=== PATIENT | female | born 1980 | race Caucasian/White ===

== ENCOUNTER → 2023-03-02 12:37 | Outpatient (CLI) | payer OTHER, SELFPAY ==
--- NOTE | 2023-03-02 | DI.MG.S_ITS ---
BILATERAL DIGITAL SCREENING MAMMOGRAM 3D/2D WITH CAD: 03/02/2023 CLINICAL: Routine screening. Comparison is made to exams dated: 10/13/2021 mammogram and 08/13/2020 mammogram - outside location. There are scattered areas of fibroglandular density in both breasts (category b / 25%-50% glandular tissue). Current study was also evaluated with a Computer Aided Detection (CAD) system. No significant masses, calcifications, or other findings are seen in either breast. There has been no significant interval change. IMPRESSION: NEGATIVE There is no mammographic evidence of malignancy. A 1 year screening mammogram is recommended. Based on the Tyrer Cuzick model (a risk assessment model) the patient's lifetime risk is 6.8% and her 10 year risk is 1.0%. According to the ACR, ACS, and NCCN guidelines, an annual breast MRI exam along with mammogram is recommended if the patient's lifetime risk is 20% or greater. This exam was interpreted at Station ID: [id number]. NOTE: For mammograms, a report in lay terms will be sent to the patient. Approximately 15% of breast malignancies will not be visualized mammographically. In the management of a palpable breast mass, a negative mammogram must not discourage biopsy of a clinically suspicious lesion. Electronically Signed By: David wynn/han:03/02/2023 14:41:52 letter sent: Normal Exam ACR BI-RADS Category 1: Negative [id number]
== END ==
PROVIDERS: Family Provider Family Medicine; PCP Family Medicine; Referring Provider Family Medicine; Visit Provider Family Medicine
DX: Z12.31 Encounter for screening mammogram for malignant neoplasm of breast (principal)
CPT/HCPCS: 77063; 77067

== ENCOUNTER → 2023-04-14 08:57 | Outpatient (CLI) | payer OTHER, SELFPAY ==
--- NOTE | 2023-04-14 08:58 | DI.RAD.S_ITS ---
PROCEDURE: XR FOOT LT MIN 3V INDICATIONS: Left lateral foot pain x 8 month TECHNIQUE: 3 views of the foot were acquired. COMPARISON: None. FINDINGS: Bones: No fractures or dislocations. No suspicious bony lesions. Soft tissues: No tibiotalar joint effusion. Achilles tendon appears normal. IMPRESSION: No acute bony abnormality. Dictated by: Bola Moe M.D. on 04/14/2023 at 11:28 Approved by: Bola Moe M.D. on 04/14/2023 at 11:29
== END ==
PROVIDERS: Family Provider Family Medicine; PCP Family Medicine; Referring Provider Family Medicine; Visit Provider Family Medicine
DX: M72.2 Plantar fascial fibromatosis (principal); M79.672 Pain in left foot
CPT/HCPCS: 73630

== ENCOUNTER 2023-08-18 09:00 | Outpatient (RCR) | payer OTHER, MEDICAID, SELFPAY ==
--- NOTE | 2023-07-16 15:50 | PT.OIE ---
Current Diagnoses Plantar fascial fibromatosis (07/16/23) Pain in left foot (07/16/23) Past Medical History (Last Updated 04/03/23 @ 21:06 by Isa Green) Anorexia nervosa Anxiety Bulimia Depression Heavy menstrual period (~2019) HSV-1 infection (~2000) Ovarian cyst (~2009) Painful menstrual periods (~2019) Plantar warts PTSD (post-traumatic stress disorder) (~2015) Substance abuse Past Surgical History (Last Updated 04/03/23 @ 21:06 by Isa Green) History of Visit Care Team Role Provider Type Regina Aguilar DO Attending Provider Physician Family Provider Primary Care Provider Referring Provider Specialty: Family Practice Address: [address] [place] [address], [address], [facility] Email: [email or web address] Physical Therapy Initial Evaluation PT-OP-A Visit Information Start: 07/16/23 07:24 Freq: Status: Active Protocol: Document 07/16/23 09:46 NM (Rec: 07/16/23 10:33 NM [id number]) Out-Patient Physical Therapy Visit Information Visit Information Visit Type Initial Evaluation Visit Note 12 visits MAX Visit Start Time 09:45 Visit Stop Time 10:30 Visit Number 1 Evaluation Information Evaluation Date 07/16/23 PT-OP-B Current Condition Start: 07/16/23 07:24 Freq: Status: Active Protocol: Document 07/16/23 09:46 NM (Rec: 07/16/23 10:33 NM [id number]) Current Condition History of Current Condition Onset Date 8 months Current Complaints pain, mobility, strength, balance History of Current Condition Pt reports that she has had pain in her foot for 8 months, L>R, that has worsened overall. Pt reports waking up with the pain one day. MD believes plantar fasciitis, but doesn't match. Pt has been wearing boot at night but reports that made symptoms worse. She recently got new shoes and orthotics specific for plantar fasciitis, reports good difference but continues to hurt. Pt used to wear shoes that cause compression. Pain occurs with exercise, plantarflexion. She had a recent gluten exacerbation, which led to systemic inflammation. Reports periodic numbness/tingling along L lateral foot. Pt has 4 kids, always on feet. Previous low back injury after falling down stairs 7 years ago, increased lordosis prn sharp pains and throbbing R>L relieved with flexion Prior Treatments and Tests Radiographs 03/2023: no fracture Current Functional Impairments (Reported) Functional Limitations- Mobility/Gait 20 minutes ambulation, standing Functional Limitations- Recreation/ unable to exercise Hobbies PT-OP-C Subjective Start: 07/16/23 07:24 Freq: Status: Active Protocol: Document 07/16/23 09:46 NM (Rec: 07/16/23 10:33 NM [id number]) OP-PT Subjective Patient Comments Patient Comments see hx above for pt report Patient Questionnaires Foot & Ankle Ability Measure- ADL and Sports FAAM-ADL Score 55/84 FAAM-Sport Score 14/32 Lower Extremity Functional Scale LEFS Score 56/80 OP-PT Pain Assessment Location L foot Pain Location Details arch, lateral ankle/foot calf Intensity 1 Scale Used Numeric (0 - 10) Description Dull,Stabbing Description- Other worst: 8/10 Radiating Location lateral leg to knee (throbbing ) Variations/Patterns occasional radiation without provocation Pain Aggravating Factors Changing Position,ADL's, Activity,Exercise,Standing, Walking Other Pain Aggravating Factors walk barefoot (5th toe), morning, inversion, initial steps, sleeping Other Pain Alleviating Factors shoes Home Pain Medication Use Pain Medications Used Yes: tylenol prn PT-OP-D Balance Start: 07/16/23 07:24 Freq: Status: Active Protocol: Document 07/16/23 09:46 NM (Rec: 07/16/23 17:49 NM [id number]) Balance Tests Single Limb Standing Single Limb- Right 30 seconds Single Limb- Left 15 seconds, pain near 5th metatarsal Tandem Tandem Standing 30 seconds, no pain PT-OP-E Functional Tests Start: 07/16/23 07:24 Freq: Status: Active Protocol: Document 07/16/23 09:46 NM (Rec: 07/16/23 17:49 NM [id number]) Functional Tests Squat Test Score 5 Comments L rotation, pronation, B valgus, reproduces foot pain PT-OP-F Manual Assessment Start: 07/16/23 07:24 Freq: Status: Active Protocol: Document 07/16/23 09:46 NM (Rec: 07/16/23 17:49 NM [id number]) Manual Assessments Soft Tissue Assessment Soft Tissue Mobility Assessment Increased hip flexor tightness , B paraspinals Joint Mobility Assessment Joint Mobility Assessment Decreased L great toe extension. Limitations in low back ROM. No increased instability of L ankle PT-OP-G Mobility & Gait Start: 07/16/23 07:24 Freq: Status: Active Protocol: Document 07/16/23 09:46 NM (Rec: 07/16/23 17:49 NM [id number]) OP Gait Assessment Gait Gait Assistance Required: Independent Distance (Feet) 150 Assistive Devices Assistive Device None Gait Deviations General Gait Pattern Antalgic Factors Limiting Gait Function Factors Limiting Gait Function Decreased Activity Tolerance, Pain Comments Gait Comments Demos decreased weight bearing along L lateral foot, tends to pronate PT-OP-H Neuro Start: 07/16/23 07:24 Freq: Status: Active Protocol: Document 07/16/23 09:46 NM (Rec: 07/16/23 17:49 NM [id number]) Sensation Evaluation Comments Summary Comments BLE equally intact to light touch sensation PT-OP-J Posture/Palpation/Skin Start: 07/16/23 07:24 Freq: Status: Active Protocol: Document 07/16/23 09:46 NM (Rec: 07/16/23 17:49 NM [id number]) Posture Evaluation Position Standing Head/C-Spine Posture Forward Head L-Spine Posture Increased Lordosis Pelvis Posture Anteriorly Tilted Knee Posture (L) Genu Valgus,(R) Genu Valgus Patellar Posture (L) Superior,(R) Superior Ankle/Foot Posture (L) Pronated,(R) Pronated,(L) Calcaneal Eversion,(R) Calcaneal Eversion Foot Arch (L) Low Arch,(R) Low Arch Palpation Assessment Location L foot Palpation Details Tenderness to 5th metatarsal. No tenderness of calcaneus, arch, Achilles, malleoli, other metatarsals Skin Assessment Other Assessments Skin Assessment Comments No swelling PT-OP-K Range of Motion Start: 07/16/23 07:24 Freq: Status: Active Protocol: Document 07/16/23 09:46 NM (Rec: 07/16/23 10:33 NM [id number]) Hip Goniometric Range of Motion Hip Right Flexion w/Knee Flexed 120 Internal Rotation 35 External Rotation 30 Comments 170 deg HS length Left Flexion w/Knee Flexed 120 Internal Rotation 35 External Rotation 35 Comments 165 deg hamstring Knee Goniometric Range of Motion Knee Right Flexion Active (degrees) 135 Hyper-Extension Active 5 Left Flexion Active (degrees) 135 Hyper-Extension Active 3 Ankle and Foot Goniometric Range of Motion Ankle and Foot Right Dorsiflexion with Knee Flexed 15 Dorsiflexion with Knee Extended 10 Plantarflexion 40 Inversion 35 Eversion 15 Left Dorsiflexion with Knee Flexed 12 Dorsiflexion with Knee Extended 5 Plantarflexion 40 Inversion 30 Eversion 10 Comments no pain PT-OP-L Special Tests Start: 07/16/23 07:24 Freq: Status: Active Protocol: Document 07/16/23 09:46 NM (Rec: 07/16/23 10:33 NM [id number]) Special Tests Lumbar Spine Special Tests Berry/Quadrant Test Results + Comments B local referral Distraction Test Results + Foot/Ankle Special Tests Windlass Test Results - Comments arch raises, no pain Talar tilt Test Results - Anterior drawer Test Results - PT-OP-M Strength Start: 07/16/23 07:24 Freq: Status: Active Protocol: Document 07/16/23 09:46 NM (Rec: 07/16/23 10:33 NM [id number]) Trunk Strength Trunk Manual Muscle Testing Flexion 4 Good Extension 4 Good Rotation Left 4 Good Rotation Right 4 Good Lateral Flexion Left 4 Good Lateral Flexion Right 4 Good Hip Strength Hip Manual Muscle Testing Right Flexion (L2) 4 Good Extension (S1) 4- Good- Abduction 4- Good- Adduction 4 Good External Rotation 4 Good Internal Rotation 4 Good Left Flexion (L2) 4 Good Extension (S1) 4- Good- Abduction 4- Good- Adduction 4 Good External Rotation 4 Good Internal Rotation 4 Good Knee Strength Knee Manual Muscle Testing Right Flexion (S2) 4 Good Extension (L3) 4 Good Left Flexion (S2) 4 Good Extension (L3) 4 Good Ankle/Foot Strength Ankle and Foot Manual Muscle Testing Right Dorsiflexion (L4) 4 Good Plantarflexion (S1) 4 Good Inversion 4 Good Eversion (S1) 4 Good Left Dorsiflexion (L4) 4 Good Plantarflexion (S1) 4 Good Inversion 4 Good Eversion (S1) 4 Good Comments 1 B heel raise; reproduces pain PT-OP-T Assessment and Plan Start: 07/16/23 07:24 Freq: Status: Active Protocol: Document 07/16/23 09:46 NM (Rec: 07/16/23 10:33 NM [id number]) Physical Therapy Assessment Goals Five Impairment ambulation Impairment pain after ambulation 20 minutes Short Term Goal (STG) Pt will report pain <5/10 after ambulating for 20 minutes in order to demonstrate improved activity tolerance and pain management STG Duration 5 weeks Hr Payroll Coordinator Goal (LTG) Pt will report that she is able to ambulate for at least 30 minutes in order to demonstrate improved activity tolerance and pain management LTG Duration 10 weeks Four Impairment HEP Impairment not performing HEP Short Term Goal (STG) Pt will report compliance with HEP at least 2-3x/wk in order to maximize progressions made with PT STG Duration 5 weeks Shelter Goal (LTG) Pt will report compliance with HEP at least 3x/wk in order to transition into maintenance program upon discharge from PT LTG Duration 10 weeks Three Impairment ankle ROM Impairment L dorsiflexion 12 deg Shelter Goal (LTG) Pt will increase L ankle dorsiflexion to within 5 degrees of R ankle dorsiflexion for improved gait mechanics and to demonstrate improved ankle mobility LTG Duration 10 weeks Two Impairment strength Impairment B hip abd and ext strength 4-/ 5 Short Term Goal (STG) Pt will increase B hip abduction and extension strength to at least 4/5 MMT in order to improve stability during gait and activity STG Duration 5 weeks Hr Payroll Coordinator Goal (LTG) Pt will increase B hip abduction and extension strength to at least 4+/5 MMT in order to improve stability during gait and activity LTG Duration 10 weeks One Impairment LEFS Impairment 56/80 Short Term Goal (STG) Pt will increase LEFS score by at least 5 points in order to demonstrate improved activity tolerance and QOL STG Duration 5 weeks Shelter Goal (LTG) Pt will increase LEFS score by at least 9 points (MCID) in order to demonstrate improved activity tolerance and QOL LTG Duration 10 weeks Assessment Summary Assessment Pt is a 42 y.o. female presenting with L foot pain beginning 8 months ago. Pt's pain has worsened over the last several months, and she has not been able to participate in exercise or ADLs without pain. Symptoms are similar to plantar fasciitis; however, pt also demonstrates signs of posterior tibialis inflammation and peroneal muscle involvement. Pt reports improvement in symptoms with foot orthotics, change in shoes, and rest. Pt does not have pain with resisted L ankle or foot MMT except with weightbearing heel raises. She does demonstrate decreased L ankle AROM compared to RLE. She has numbness occasionally along L lateral foot. Pt has tenderness along 5th metatarsal but radiographs rule out fracture. Pt has hx of low back pain, which likely influences symptoms. She has a positive Berry/Quadrant test bilaterally for local pain; pt has full lumbar spine AROM but decreased strength with testing. PT educated pt on exam findings, POC, and pain management strategies including avoiding shoes that cause compression, ice massage . Pt would benefit from skilled PT for education regarding activity modification, for symptom management, and to improve activity tolerance and QOL. Physical Therapy Plan Frequency and Duration Frequency of Treatment 1-2x/wk Duration of treatment (weeks) 10 Plan of Care Start Date 07/16/23 Plan of Care End Date 10/01/23 Therapeutic Interventions Therapeutic Interventions Balance Training,Gait Training ,Home Exercise Program,Joint Mobilizations,Manual Therapy, Neuromuscular Re-education, Orthotic/Prosthetic Management ,Patient/Caregiver Education, Self-Care/Home Management, Sensory Integration,Soft Tissue Mobilization,Taping, Therapeutic Activities, Therapeutic Exercises Modalities Cold Pack/Ice Massage,Electric Stimulation,Hot Packs, Ultrasound,Vasopneumatic Devices Next Visit Focus/Plan Next Note Type Treatment Note Next Visit Plan Initiate HEP Tibial nerve glide, g/s/1st toe stretch, hip abduction/ glute strengthening, LTR, TrA
--- NOTE | 2023-07-16 15:51 | PT.OPPOC ---
Physical, Occupational & Speech Therapy At [facility] Current Diagnoses Plantar fascial fibromatosis (07/16/23) Pain in left foot (07/16/23) Other lack of coordination (07/16/23) Weakness (07/16/23) Visit Care Team Role Provider Type Regina Aguilar DO Attending Provider Physician Family Provider Primary Care Provider Referring Provider Specialty: [facility] Address: [address] [place] [address], [address], [facility] Email: [email or web address] Plan Of Care PT-OP-T Assessment and Plan Start: 07/16/23 07:24 Freq: Status: Active Protocol: Document 07/16/23 09:46 NM (Rec: 07/16/23 10:33 NM [id number]) Physical Therapy Assessment Goals Five Impairment ambulation Impairment pain after ambulation 20 minutes Short Term Goal (STG) Pt will report pain <5/10 after ambulating for 20 minutes in order to demonstrate improved activity tolerance and pain management STG Duration 5 weeks Maintenance Superintendent Goal (LTG) Pt will report that she is able to ambulate for at least 30 minutes in order to demonstrate improved activity tolerance and pain management LTG Duration 10 weeks Four Impairment HEP Impairment not performing HEP Short Term Goal (STG) Pt will report compliance with HEP at least 2-3x/wk in order to maximize progressions made with PT STG Duration 5 weeks Maintenance Superintendent Goal (LTG) Pt will report compliance with HEP at least 3x/wk in order to transition into maintenance program upon discharge from PT LTG Duration 10 weeks Three Impairment ankle ROM Impairment L dorsiflexion 12 deg Care Home Goal (LTG) Pt will increase L ankle dorsiflexion to within 5 degrees of R ankle dorsiflexion for improved gait mechanics and to demonstrate improved ankle mobility LTG Duration 10 weeks Two Impairment strength Impairment B hip abd and ext strength 4-/ 5 Short Term Goal (STG) Pt will increase B hip abduction and extension strength to at least 4/5 MMT in order to improve stability during gait and activity STG Duration 5 weeks Care Home Goal (LTG) Pt will increase B hip abduction and extension strength to at least 4+/5 MMT in order to improve stability during gait and activity LTG Duration 10 weeks One Impairment LEFS Impairment 56/80 Short Term Goal (STG) Pt will increase LEFS score by at least 5 points in order to demonstrate improved activity tolerance and QOL STG Duration 5 weeks Maintenance Superintendent Goal (LTG) Pt will increase LEFS score by at least 9 points (MCID) in order to demonstrate improved activity tolerance and QOL LTG Duration 10 weeks Assessment Summary Assessment Pt is a 42 y.o. female presenting with L foot pain beginning 8 months ago. Pt's pain has worsened over the last several months, and she has not been able to participate in exercise or ADLs without pain. Symptoms are similar to plantar fasciitis; however, pt also demonstrates signs of posterior tibialis inflammation and peroneal muscle involvement. Pt reports improvement in symptoms with foot orthotics, change in shoes, and rest. Pt does not have pain with resisted L ankle or foot MMT except with weightbearing heel raises. She does demonstrate decreased L ankle AROM compared to RLE. She has numbness occasionally along L lateral foot. Pt has tenderness along 5th metatarsal but radiographs rule out fracture. Pt has hx of low back pain, which likely influences symptoms. She has a positive Berry/Quadrant test bilaterally for local pain; pt has full lumbar spine AROM but decreased strength with testing. PT educated pt on exam findings, POC, and pain management strategies including avoiding shoes that cause compression, ice massage . Pt would benefit from skilled PT for education regarding activity modification, for symptom management, and to improve activity tolerance and QOL. Physical Therapy Plan Frequency and Duration Frequency of Treatment 1-2x/wk Duration of treatment (weeks) 10 Plan of Care Start Date 07/16/23 Plan of Care End Date 10/01/23 Therapeutic Interventions Therapeutic Interventions Balance Training,Gait Training ,Home Exercise Program,Joint Mobilizations,Manual Therapy, Neuromuscular Re-education, Orthotic/Prosthetic Management ,Patient/Caregiver Education, Self-Care/Home Management, Sensory Integration,Soft Tissue Mobilization,Taping, Therapeutic Activities, Therapeutic Exercises Modalities Cold Pack/Ice Massage,Electric Stimulation,Hot Packs, Ultrasound,Vasopneumatic Devices Next Visit Focus/Plan Next Note Type Treatment Note Next Visit Plan Initiate HEP Tibial nerve glide, g/s/1st toe stretch, hip abduction/ glute strengthening, LTR, TrA Plan of Care Dates Plan of Care Start Date 07/16/23 Plan of Care End Date 10/01/23 Electronically Signed by: Lyssa Duarte, PT 07/20/23 0841 If you are in agreement with this Plan of Care, please return a signed and dated copy. I have reviewed this Plan of Care and certify that the skilled therapy services above are required to meet the patient?s needs. Physician Signature Date Printed Name and Credentials Clinical Instructor Signature Printed Name and Credentials
--- NOTE | 2023-07-20 12:57 | PT.OTN ---
Current Diagnoses Plantar fascial fibromatosis (07/20/23) Pain in left foot (07/20/23) Other lack of coordination (07/20/23) Weakness (07/20/23) Physical Therapy Treatment Note PT-OP-A Visit Information Start: 07/16/23 07:24 Freq: Status: Active Protocol: Document 07/20/23 09:01 NM (Rec: 07/20/23 10:31 NM [id number]) Out-Patient Physical Therapy Visit Information Visit Information Visit Type Treatment Note Visit Note 12 visits MAX Visit Start Time 09:01 Visit Stop Time 09:45 Visit Number 2 Evaluation Information Evaluation Date 07/16/23 PT-OP-B Current Condition Start: 07/16/23 07:24 Freq: Status: Active Protocol: Document 07/16/23 09:46 NM (Rec: 07/16/23 10:33 NM [id number]) Current Condition History of Current Condition Onset Date 8 months Current Complaints pain, mobility, strength, balance History of Current Condition Pt reports that she has had pain in her foot for 8 months, L>R, that has worsened overall. Pt reports waking up with the pain one day. MD believes plantar fasciitis, but doesn't match. Pt has been wearing boot at night but reports that made symptoms worse. She recently got new shoes and orthotics specific for plantar fasciitis, reports good difference but continues to hurt. Pt used to wear shoes that cause compression. Pain occurs with exercise, plantarflexion. She had a recent gluten exacerbation, which led to systemic inflammation. Reports periodic numbness/tingling along L lateral foot. Pt has 4 kids, always on feet. Previous low back injury after falling down stairs 7 years ago, increased lordosis prn sharp pains and throbbing R>L relieved with flexion Prior Treatments and Tests Radiographs 03/2023: no fracture Current Functional Impairments (Reported) Functional Limitations- Mobility/Gait 20 minutes ambulation, standing Functional Limitations- Recreation/ unable to exercise Hobbies PT-OP-C Subjective Start: 07/16/23 07:24 Freq: Status: Active Protocol: Document 07/20/23 09:01 NM (Rec: 07/20/23 10:31 NM [id number]) OP-PT Subjective Patient Comments Patient Comments Pt reports 4/10 L foot pain. PT-OP-D Balance Start: 07/16/23 07:24 Freq: Status: Active Protocol: Document 07/16/23 09:46 NM (Rec: 07/16/23 17:49 NM [id number]) Balance Tests Single Limb Standing Single Limb- Right 30 seconds Single Limb- Left 15 seconds, pain near 5th metatarsal Tandem Tandem Standing 30 seconds, no pain PT-OP-E Functional Tests Start: 07/16/23 07:24 Freq: Status: Active Protocol: Document 07/16/23 09:46 NM (Rec: 07/16/23 17:49 NM [id number]) Functional Tests Squat Test Score 5 Comments L rotation, pronation, B valgus, reproduces foot pain PT-OP-F Manual Assessment Start: 07/16/23 07:24 Freq: Status: Active Protocol: Document 07/16/23 09:46 NM (Rec: 07/16/23 17:49 NM [id number]) Manual Assessments Soft Tissue Assessment Soft Tissue Mobility Assessment Increased hip flexor tightness , B paraspinals Joint Mobility Assessment Joint Mobility Assessment Decreased L great toe extension. Limitations in low back ROM. No increased instability of L ankle PT-OP-G Mobility & Gait Start: 07/16/23 07:24 Freq: Status: Active Protocol: Document 07/16/23 09:46 NM (Rec: 07/16/23 17:49 NM [id number]) OP Gait Assessment Gait Gait Assistance Required: Independent Distance (Feet) 150 Assistive Devices Assistive Device None Gait Deviations General Gait Pattern Antalgic Factors Limiting Gait Function Factors Limiting Gait Function Decreased Activity Tolerance, Pain Comments Gait Comments Demos decreased weight bearing along L lateral foot, tends to pronate PT-OP-H Neuro Start: 07/16/23 07:24 Freq: Status: Active Protocol: Document 07/16/23 09:46 NM (Rec: 07/16/23 17:49 NM [id number]) Sensation Evaluation Comments Summary Comments BLE equally intact to light touch sensation PT-OP-J Posture/Palpation/Skin Start: 07/16/23 07:24 Freq: Status: Active Protocol: Document 07/16/23 09:46 NM (Rec: 07/16/23 17:49 NM [id number]) Posture Evaluation Position Standing Head/C-Spine Posture Forward Head L-Spine Posture Increased Lordosis Pelvis Posture Anteriorly Tilted Knee Posture (L) Genu Valgus,(R) Genu Valgus Patellar Posture (L) Superior,(R) Superior Ankle/Foot Posture (L) Pronated,(R) Pronated,(L) Calcaneal Eversion,(R) Calcaneal Eversion Foot Arch (L) Low Arch,(R) Low Arch Palpation Assessment Location L foot Palpation Details Tenderness to 5th metatarsal. No tenderness of calcaneus, arch, Achilles, malleoli, other metatarsals Skin Assessment Other Assessments Skin Assessment Comments No swelling PT-OP-K Range of Motion Start: 07/16/23 07:24 Freq: Status: Active Protocol: Document 07/16/23 09:46 NM (Rec: 07/16/23 10:33 NM [id number]) Hip Goniometric Range of Motion Hip Right Flexion w/Knee Flexed 120 Internal Rotation 35 External Rotation 30 Comments 170 deg HS length Left Flexion w/Knee Flexed 120 Internal Rotation 35 External Rotation 35 Comments 165 deg hamstring Knee Goniometric Range of Motion Knee Right Flexion Active (degrees) 135 Hyper-Extension Active 5 Left Flexion Active (degrees) 135 Hyper-Extension Active 3 Ankle and Foot Goniometric Range of Motion Ankle and Foot Right Dorsiflexion with Knee Flexed 15 Dorsiflexion with Knee Extended 10 Plantarflexion 40 Inversion 35 Eversion 15 Left Dorsiflexion with Knee Flexed 12 Dorsiflexion with Knee Extended 5 Plantarflexion 40 Inversion 30 Eversion 10 Comments no pain PT-OP-L Special Tests Start: 07/16/23 07:24 Freq: Status: Active Protocol: Document 07/16/23 09:46 NM (Rec: 07/16/23 10:33 NM [id number]) Special Tests Lumbar Spine Special Tests Berry/Quadrant Test Results + Comments B local referral Distraction Test Results + Foot/Ankle Special Tests Windlass Test Results - Comments arch raises, no pain Talar tilt Test Results - Anterior drawer Test Results - PT-OP-M Strength Start: 07/16/23 07:24 Freq: Status: Active Protocol: Document 07/16/23 09:46 NM (Rec: 07/16/23 10:33 NM [id number]) Trunk Strength Trunk Manual Muscle Testing Flexion 4 Good Extension 4 Good Rotation Left 4 Good Rotation Right 4 Good Lateral Flexion Left 4 Good Lateral Flexion Right 4 Good Hip Strength Hip Manual Muscle Testing Right Flexion (L2) 4 Good Extension (S1) 4- Good- Abduction 4- Good- Adduction 4 Good External Rotation 4 Good Internal Rotation 4 Good Left Flexion (L2) 4 Good Extension (S1) 4- Good- Abduction 4- Good- Adduction 4 Good External Rotation 4 Good Internal Rotation 4 Good Knee Strength Knee Manual Muscle Testing Right Flexion (S2) 4 Good Extension (L3) 4 Good Left Flexion (S2) 4 Good Extension (L3) 4 Good Ankle/Foot Strength Ankle and Foot Manual Muscle Testing Right Dorsiflexion (L4) 4 Good Plantarflexion (S1) 4 Good Inversion 4 Good Eversion (S1) 4 Good Left Dorsiflexion (L4) 4 Good Plantarflexion (S1) 4 Good Inversion 4 Good Eversion (S1) 4 Good Comments 1 B heel raise; reproduces pain PT-OP-Q Treatments Start: 07/16/23 07:24 Freq: Status: Active Protocol: Document 07/20/23 09:01 NM (Rec: 07/20/23 10:31 NM [id number]) Therapeutic Exercises Supine Exercises bridge Side bilateral Reps/Minutes 1x10 with 3 hold Comments pain free, cued PPT Sidelying Exercises hip abduction Side bilateral Resistance AROM Reps/Minutes 2x8 with 3 Comments pain free, cued for hip abd/ ext not flexion Sitting Exercises glute medius Sitting Exercise Name isometric Side bilateral Resistance lvl 3 tb Reps/Minutes 1x60 Comments cued feet flat, pain free but feels good glute ankle inversion Sitting Exercise Name isometric Side left Resistance 25% pt force Equipment Used blue ball Reps/Minutes 10x5 Comments pain free with isometric ankle eversion Side left Resistance lvl 2 teal tb Reps/Minutes 2x8 Comments pain free; cued for form ankle plantarflexion Sitting Exercise Name isometric Side left Resistance 25% pt force Equipment Used blue ball Reps/Minutes 10x5 Comments pain free with isometric ( trialed w/ band but d/c due to pain) ankle dorsiflexion Side left Resistance lvl 2 teal tb Reps/Minutes 2x8 Comments pain free; cued for form Standing Exercises great toe ext stretch Side left Equipment Used at wall, towel roll under leg Reps/Minutes 1x60 Comments pain free calf stretch Standing Exercise Name 1. gastrocnemius, 2. soleus Side left Equipment Used at wall, staggered stance Reps/Minutes 1x60 ea Comments pain free, feels really good Manual Therapy Treatment Soft Tissue Mobilization L foot/ankle Body Location plantar fascia, post tib, peroneals, achilles Mobilization Type Cross-Friction,Rolling Intensity/Depth Moderate Body Position Supine Comments Minimal tenderness along post tib and peroneals. No pain/ discomfort at plantar fascia. Performed distal>proximal Joint Mobilizations L foot/ankle Direction rays 1-5 flex/ext, 1st toe ext dorsal/volar Grade III Body Position Supine Reps/Duration 1x10 ea Comments Pain free for all motion, minimal tenderness along 5th metatarsal. Decreased mobility at 1st ray with extension. Self-Care/Home Management Treatment Education Patient Education Home Exercise Program,Pain Management Other Education HEP: standing gastroc/soleus/ 1st toe ext stretch, hip abduction in sidelying, bridge with ppt. Educated on modalities for pain relief, activity modification to decrease WB as able, HEP purpose and compliance to maximize PT PT-OP-T Assessment and Plan Start: 07/16/23 07:24 Freq: Status: Active Protocol: Document 07/20/23 09:01 NM (Rec: 07/20/23 10:31 NM [id number]) Physical Therapy Assessment Goals Five Impairment ambulation Impairment pain after ambulation 20 minutes Short Term Goal (STG) Pt will report pain <5/10 after ambulating for 20 minutes in order to demonstrate improved activity tolerance and pain management STG Duration 5 weeks Residential Goal (LTG) Pt will report that she is able to ambulate for at least 30 minutes in order to demonstrate improved activity tolerance and pain management LTG Duration 10 weeks Four Impairment HEP Impairment not performing HEP Short Term Goal (STG) Pt will report compliance with HEP at least 2-3x/wk in order to maximize progressions made with PT STG Duration 5 weeks Residential Goal (LTG) Pt will report compliance with HEP at least 3x/wk in order to transition into maintenance program upon discharge from PT LTG Duration 10 weeks Three Impairment ankle ROM Impairment L dorsiflexion 12 deg Residential Goal (LTG) Pt will increase L ankle dorsiflexion to within 5 degrees of R ankle dorsiflexion for improved gait mechanics and to demonstrate improved ankle mobility LTG Duration 10 weeks Two Impairment strength Impairment B hip abd and ext strength 4-/ 5 Short Term Goal (STG) Pt will increase B hip abduction and extension strength to at least 4/5 MMT in order to improve stability during gait and activity STG Duration 5 weeks Residential Goal (LTG) Pt will increase B hip abduction and extension strength to at least 4+/5 MMT in order to improve stability during gait and activity LTG Duration 10 weeks One Impairment LEFS Impairment 56/80 Short Term Goal (STG) Pt will increase LEFS score by at least 5 points in order to demonstrate improved activity tolerance and QOL STG Duration 5 weeks Drink Mixer Goal (LTG) Pt will increase LEFS score by at least 9 points (MCID) in order to demonstrate improved activity tolerance and QOL LTG Duration 10 weeks Assessment Summary Assessment Pt tolerated session well and reports decreased pain at end of session. Initiated heel cord stretching and great toe extension stretching to lengthen arch and improve ankle mobility. Due to weak glutes, added hip strengthening to promote stability in stance and along the kinetic chain. Added ankle 4 way with inversion and plantarflexion isometrics for analgesic effect and to prevent further inflammation of posterior tibialis tendon. Pt pain free with isometrics and resisted DF/eversion. Manual treatment to improve arch length, decrease pain symptoms along ankle stabilizers, and promote mobility of rays. Pt would benefit from skilled PT for R ankle stabilization and progressive strengthening, ankle mobilization and activity modification in order to improve symptom management and activity tolerance. Physical Therapy Plan Frequency and Duration Frequency of Treatment 1-2x/wk Duration of treatment (weeks) 10 Plan of Care Start Date 07/16/23 Plan of Care End Date 10/01/23 Therapeutic Interventions Therapeutic Interventions Balance Training,Gait Training ,Home Exercise Program,Joint Mobilizations,Manual Therapy, Neuromuscular Re-education, Orthotic/Prosthetic Management ,Patient/Caregiver Education, Self-Care/Home Management, Sensory Integration,Soft Tissue Mobilization,Taping, Therapeutic Activities, Therapeutic Exercises Modalities Cold Pack/Ice Massage,Electric Stimulation,Hot Packs, Ultrasound,Vasopneumatic Devices Next Visit Focus/Plan Next Note Type Treatment Note Next Visit Plan Add ankle 4 way to HEP, progress to resisted eccentric inversion/plantarflexion. Next session: Continue G/S/toe ext stretch, Standing DF mobilization, side steps, bridge vs single leg bridge. * *provide good HEP d/t 1x/wk do not flare up post tib tendon Tibial nerve glide, g/s/1st toe stretch, hip abduction/ glute strengthening, LTR, TrA
--- NOTE | 2023-07-23 12:18 | PT.OTN ---
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 Pt reports waking up with the pain one day. MD believes plantar fasciitis, but doesn't match. Pt has been wearing boot at night but reports that made symptoms worse. She recently got new shoes and orthotics specific for plantar fasciitis, reports good difference but continues to hurt. Pt used to wear shoes that cause compression. Pain occurs with exercise, plantarflexion. She had a recent gluten exacerbation, which led to systemic inflammation. Reports periodic numbness/tingling along L lateral foot. Pt has 4 kids, always on feet. Previous low back injury after falling down stairs 7 years ago, increased lordosis prn sharp pains and throbbing R>L relieved with flexion Prior Treatments and Tests Radiographs 03/2023: no fracture Current Functional Impairments (Reported) Functional Limitations- Mobility/Gait 20 minutes ambulation, standing Functional Limitations- Recreation/ unable to exercise Hobbies PT-OP-C Subjective Start: 07/16/23 07:24 Freq: Status: Active Protocol: Document 07/23/23 08:11 AB (Rec: 07/23/23 12:18 AB [id number]) OP-PT Subjective Patient Comments Patient Comments Patient reports the foot is the same, rating left foot pain /10. 4.25 cm from wall with knee to wall prior to heel off floor PROM body over ankle DF start of session PT-OP-D Balance Start: 07/16/23 07:24 Freq: Status: Active Protocol: Document 07/16/23 09:46 NM (Rec: 07/16/23 17:49 NM [id number]) Balance Tests Single Limb Standing Single Limb- Right 30 seconds Single Limb- Left 15 seconds, pain near 5th metatarsal Tandem Tandem Standing 30 seconds, no pain PT-OP-E Functional Tests Start: 07/16/23 07:24 Freq: Status: Active Protocol: Document 07/16/23 09:46 NM (Rec: 07/16/23 17:49 NM [id number]) Functional Tests Squat Test Score 5 Comments L rotation, pronation, B valgus, reproduces foot pain PT-OP-F Manual Assessment Start: 07/16/23 07:24 Freq: Status: Active Protocol: Document 07/16/23 09:46 NM (Rec: 07/16/23 17:49 NM [id number]) Manual Assessments Soft Tissue Assessment Soft Tissue Mobility Assessment Increased hip flexor tightness , B paraspinals Joint Mobility Assessment Joint Mobility Assessment Decreased L great toe extension. Limitations in low back ROM. No increased instability of L ankle PT-OP-G Mobility & Gait Start: 07/16/23 07:24 Freq: Status: Active Protocol: Document 07/16/23 09:46 NM (Rec: 07/16/23 17:49 NM [id number]) OP Gait Assessment Gait Gait Assistance Required: Independent Distance (Feet) 150 Assistive Devices Assistive Device None Gait Deviations General Gait Pattern Antalgic Factors Limiting Gait Function Factors Limiting Gait Function Decreased Activity Tolerance, Pain Comments Gait Comments Demos decreased weight bearing along L lateral foot, tends to pronate PT-OP-H Neuro Start: 07/16/23 07:24 Freq: Status: Active Protocol: Document 07/16/23 09:46 NM (Rec: 07/16/23 17:49 NM [id number]) Sensation Evaluation Comments Summary Comments BLE equally intact to light touch sensation PT-OP-J Posture/Palpation/Skin Start: 07/16/23 07:24 Freq: Status: Active Protocol: Document 07/16/23 09:46 NM (Rec: 07/16/23 17:49 NM [id number]) Posture Evaluation Position Standing Head/C-Spine Posture Forward Head L-Spine Posture Increased Lordosis Pelvis Posture Anteriorly Tilted Knee Posture (L) Genu Valgus,(R) Genu Valgus Patellar Posture (L) Superior,(R) Superior Ankle/Foot Posture (L) Pronated,(R) Pronated,(L) Calcaneal Eversion,(R) Calcaneal Eversion Foot Arch (L) Low Arch,(R) Low Arch Palpation Assessment Location L foot Palpation Details Tenderness to 5th metatarsal. No tenderness of calcaneus, arch, Achilles, malleoli, other metatarsals Skin Assessment Other Assessments Skin Assessment Comments No swelling PT-OP-K Range of Motion Start: 07/16/23 07:24 Freq: Status: Active Protocol: Document 07/16/23 09:46 NM (Rec: 07/16/23 10:33 NM [id number]) Hip Goniometric Range of Motion Hip Right Flexion w/Knee Flexed 120 Internal Rotation 35 External Rotation 30 Comments 170 deg HS length Left Flexion w/Knee Flexed 120 Internal Rotation 35 External Rotation 35 Comments 165 deg hamstring Knee Goniometric Range of Motion Knee Right Flexion Active (degrees) 135 Hyper-Extension Active 5 Left Flexion Active (degrees) 135 Hyper-Extension Active 3 Ankle and Foot Goniometric Range of Motion Ankle and Foot Right Dorsiflexion with Knee Flexed 15 Dorsiflexion with Knee Extended 10 Plantarflexion 40 Inversion 35 Eversion 15 Left Dorsiflexion with Knee Flexed 12 Dorsiflexion with Knee Extended 5 Plantarflexion 40 Inversion 30 Eversion 10 Comments no pain PT-OP-L Special Tests Start: 07/16/23 07:24 Freq: Status: Active Protocol: Document 07/16/23 09:46 NM (Rec: 07/16/23 10:33 NM [id number]) Special Tests Lumbar Spine Special Tests Berry/Quadrant Test Results + Comments B local referral Distraction Test Results + Foot/Ankle Special Tests Windlass Test Results - Comments arch raises, no pain Talar tilt Test Results - Anterior drawer Test Results - PT-OP-M Strength Start: 07/16/23 07:24 Freq: Status: Active Protocol: Document 07/16/23 09:46 NM (Rec: 03/22/24 10:33 NM [id number]) Trunk Strength Trunk Manual Muscle Testing Flexion 4 Good Extension 4 Good Rotation Left 4 Good Rotation Right 4 Good Lateral Flexion Left 4 Good Lateral Flexion Right 4 Good Hip Strength Hip Manual Muscle Testing Right Flexion (L2) 4 Good Extension (S1) 4- Good- Abduction 4- Good- Adduction 4 Good External Rotation 4 Good Internal Rotation 4 Good Left Flexion (L2) 4 Good Extension (S1) 4- Good- Abduction 4- Good- Adduction 4 Good External Rotation 4 Good Internal Rotation 4 Good Knee Strength Knee Manual Muscle Testing Right Flexion (S2) 4 Good Extension (L3) 4 Good Left Flexion (S2) 4 Good Extension (L3) 4 Good Ankle/Foot Strength Ankle and Foot Manual Muscle Testing Right Dorsiflexion (L4) 4 Good Plantarflexion (S1) 4 Good Inversion 4 Good Eversion (S1) 4 Good Left Dorsiflexion (L4) 4 Good Plantarflexion (S1) 4 Good Inversion 4 Good Eversion (S1) 4 Good Comments 1 B heel raise; reproduces pain PT-OP-Q Treatments Start: 07/16/23 07:24 Freq: Status: Active Protocol: Document 07/23/23 08:11 AB (Rec: 07/23/23 12:18 AB [id number]) Therapeutic Exercises Sitting Exercises plantar flexion with band Side left Resistance level 2 teal band Reps/Minutes X15 Comments verbal cues to perform in pain free range glute medius Sitting Exercise Name isometric Side bilateral Resistance lvl 3 tb Reps/Minutes 1x60 X15 without hold Comments cued feet flat, pain free but feels good glute ankle dorsiflexion Side left Resistance lvl 2 teal tb Reps/Minutes X15 Comments Also X 10 without band Standing Exercises calf stretch Standing Exercise Name 1. gastrocnemius, 2. soleus Side left Equipment Used at wall, staggered stance Reps/Minutes 3x60 ea Comments pain free, feels really good Manual Therapy Treatment Soft Tissue Mobilization STM left calf muscles and plantar surface of foot Mobilization Type Cross-Friction,Rolling Intensity/Depth Moderate Body Position Prone Joint Mobilizations Mulligan with movement TC mobs Joint left ankle Direction ap Grade III Body Position Standing Reps/Duration X10 Comments Verbal and visual cues, monitored for pain Taping for plantar fascitis Body Location left foot and calf Type of Tape Kinesiotape Skin Inspection WNL Comments MT head mid calf, 40% stretch plantar surface of foot, no stretch over heel and achilles 20% stretch over calf PT-OP-T Assessment and Plan Start: 07/16/23 07:24 Freq: Status: Active Protocol: Document 07/23/23 08:11 AB (Rec: 07/23/23 12:18 AB [id number]) Physical Therapy Assessment Goals Five Impairment ambulation Impairment pain after ambulation 20 minutes Short Term Goal (STG) Pt will report pain <5/10 after ambulating for 20 minutes in order to demonstrate improved activity tolerance and pain management STG Duration 5 weeks Fdc Goal (LTG) Pt will report that she is able to ambulate for at least 30 minutes in order to demonstrate improved activity tolerance and pain management LTG Duration 10 weeks Four Impairment HEP Impairment not performing HEP Short Term Goal (STG) Pt will report compliance with HEP at least 2-3x/wk in order to maximize progressions made with PT STG Duration 5 weeks 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 (LTG) Pt will report compliance with HEP at least 3x/wk in order to transition into maintenance program upon discharge from PT LTG Duration 10 weeks Three Impairment ankle ROM Impairment L dorsiflexion 12 deg Fdc Goal (LTG) Pt will increase L ankle dorsiflexion to within 5 degrees of R ankle dorsiflexion for improved gait mechanics and to demonstrate improved ankle mobility LTG Duration 10 weeks Two Impairment strength Impairment B hip abd and ext strength 4-/ 5 Short Term Goal (STG) Pt will increase B hip abduction and extension strength to at least 4/5 MMT in order to improve stability during gait and activity STG Duration 5 weeks 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 Goal (LTG) Pt will increase B hip abduction and extension strength to at least 4+/5 MMT in order to improve stability during gait and activity LTG Duration 10 weeks One Impairment LEFS Impairment 56/80 Short Term Goal (STG) Pt will increase LEFS score by at least 5 points in order to demonstrate improved activity tolerance and QOL STG Duration 5 weeks Fdc Goal (LTG) Pt will increase LEFS score by at least 9 points (MCID) in order to demonstrate improved activity tolerance and QOL LTG Duration 10 weeks Assessment Summary Assessment Patient reports a little pain arch of left foot, and was unable to perform PF with band end ROM without increased pain at heel. Physical Therapy Plan Frequency and Duration Frequency of Treatment 1-2x/wk Duration of treatment (weeks) 10 Plan of Care Start Date 07/16/23 Plan of Care End Date 10/01/23 Next Visit Focus/Plan Next Note Type Treatment Note Next Visit Plan Add ankle inv/ev with band if pain free to HEP, progress to resisted eccentric inversion/ plantarflexion. Next session: Continue G/S/toe ext stretch, Standing DF mobilization, side steps, bridge vs single leg bridge. provide good HEP d/t 1x/wk do not flare up post tib tendon Tibial nerve glide, g/s/1st toe stretch, progress bands as able for hip abduction/glute strengthening, LTR, TrA
--- NOTE | 2023-07-27 17:07 | PT.OTN ---
Current Diagnoses Plantar fascial fibromatosis (07/27/23) Pain in left foot (07/27/23) Other lack of coordination (07/27/23) Weakness (07/27/23) Physical Therapy Treatment Note PT-OP-A Visit Information Start: 07/16/23 07:24 Freq: Status: Active Protocol: Document 07/27/23 08:52 AB (Rec: 07/27/23 12:11 AB [id number]) Out-Patient Physical Therapy Visit Information Visit Information Visit Type Treatment Note Visit Note 12 visits MAX Access Code [email or web address] Visit Start Time 09:48 Visit Stop Time 10:29 Visit Number 4 Number of BAKER PASTRY Visits 2 Evaluation Information Evaluation Date 07/16/23 PT-OP-B Current Condition Start: 07/16/23 07:24 Freq: Status: Active Protocol: Document 07/16/23 09:46 NM (Rec: 07/16/23 10:33 NM [id number]) Current Condition History of Current Condition Onset Date 8 months Current Complaints pain, mobility, strength, balance History of Current Condition Pt reports that she has had pain in her foot for 8 months, L>R, that has worsened overall. Pt reports waking up with the pain one day. MD believes plantar fasciitis, but doesn't match. Pt has been wearing boot at night but reports that made symptoms worse. She recently got new shoes and orthotics specific for plantar fasciitis, reports good difference but continues to hurt. Pt used to wear shoes that cause compression. Pain occurs with exercise, plantarflexion. She had a recent gluten exacerbation, which led to systemic inflammation. Reports periodic numbness/tingling along L lateral foot. Pt has 4 kids, always on feet. Previous low back injury after falling down stairs 7 years ago, increased lordosis prn sharp pains and throbbing R>L relieved with flexion Prior Treatments and Tests Radiographs 03/2023: no fracture Current Functional Impairments (Reported) Functional Limitations- Mobility/Gait 20 minutes ambulation, standing Functional Limitations- Recreation/ unable to exercise Hobbies PT-OP-C Subjective Start: 07/16/23 07:24 Freq: Status: Active Protocol: Document 07/27/23 08:52 AB (Rec: 07/27/23 12:11 AB [id number]) OP-PT Subjective Patient Comments Patient Comments Patient reports she loved the tape, has ordered tape, but it has not arrived yet. Patient reports having 0/10 foot pain now. PT-OP-D Balance Start: 07/16/23 07:24 Freq: Status: Active Protocol: Document 07/16/23 09:46 NM (Rec: 07/16/23 17:49 NM [id number]) Balance Tests Single Limb Standing Single Limb- Right 30 seconds Single Limb- Left 15 seconds, pain near 5th metatarsal Tandem Tandem Standing 30 seconds, no pain PT-OP-E Functional Tests Start: 07/16/23 07:24 Freq: Status: Active Protocol: Document 07/16/23 09:46 NM (Rec: 07/16/23 17:49 NM [id number]) Functional Tests Squat Test Score 5 Comments L rotation, pronation, B valgus, reproduces foot pain PT-OP-F Manual Assessment Start: 07/16/23 07:24 Freq: Status: Active Protocol: Document 07/16/23 09:46 NM (Rec: 07/16/23 17:49 NM [id number]) Manual Assessments Soft Tissue Assessment Soft Tissue Mobility Assessment Increased hip flexor tightness , B paraspinals Joint Mobility Assessment Joint Mobility Assessment Decreased L great toe extension. Limitations in low back ROM. No increased instability of L ankle PT-OP-G Mobility & Gait Start: 07/16/23 07:24 Freq: Status: Active Protocol: Document 07/16/23 09:46 NM (Rec: 07/16/23 17:49 NM [id number]) OP Gait Assessment Gait Gait Assistance Required: Independent Distance (Feet) 150 Assistive Devices Assistive Device None Gait Deviations General Gait Pattern Antalgic Factors Limiting Gait Function Factors Limiting Gait Function Decreased Activity Tolerance, Pain Comments Gait Comments Demos decreased weight bearing along L lateral foot, tends to pronate PT-OP-H Neuro Start: 07/16/23 07:24 Freq: Status: Active Protocol: Document 07/16/23 09:46 NM (Rec: 07/16/23 17:49 NM [id number]) Sensation Evaluation Comments Summary Comments BLE equally intact to light touch sensation PT-OP-J Posture/Palpation/Skin Start: 07/16/23 07:24 Freq: Status: Active Protocol: Document 07/16/23 09:46 NM (Rec: 07/16/23 17:49 NM [id number]) Posture Evaluation Position Standing Head/C-Spine Posture Forward Head L-Spine Posture Increased Lordosis Pelvis Posture Anteriorly Tilted Knee Posture (L) Genu Valgus,(R) Genu Valgus Patellar Posture (L) Superior,(R) Superior Ankle/Foot Posture (L) Pronated,(R) Pronated,(L) Calcaneal Eversion,(R) Calcaneal Eversion Foot Arch (L) Low Arch,(R) Low Arch Palpation Assessment Location L foot Palpation Details Tenderness to 5th metatarsal. No tenderness of calcaneus, arch, Achilles, malleoli, other metatarsals Skin Assessment Other Assessments Skin Assessment Comments No swelling PT-OP-K Range of Motion Start: 07/16/23 07:24 Freq: Status: Active Protocol: Document 07/16/23 09:46 NM (Rec: 07/16/23 10:33 NM [id number]) Hip Goniometric Range of Motion Hip Right Flexion w/Knee Flexed 120 Internal Rotation 35 External Rotation 30 Comments 170 deg HS length Left Flexion w/Knee Flexed 120 Internal Rotation 35 External Rotation 35 Comments 165 deg hamstring Knee Goniometric Range of Motion Knee Right Flexion Active (degrees) 135 Hyper-Extension Active 5 Left Flexion Active (degrees) 135 Hyper-Extension Active 3 Ankle and Foot Goniometric Range of Motion Ankle and Foot Right Dorsiflexion with Knee Flexed 15 Dorsiflexion with Knee Extended 10 Plantarflexion 40 Inversion 35 Eversion 15 Left Dorsiflexion with Knee Flexed 12 Dorsiflexion with Knee Extended 5 Plantarflexion 40 Inversion 30 Eversion 10 Comments no pain PT-OP-L Special Tests Start: 07/16/23 07:24 Freq: Status: Active Protocol: Document 07/16/23 09:46 NM (Rec: 07/16/23 10:33 NM [id number]) Special Tests Lumbar Spine Special Tests Berry/Quadrant Test Results + Comments B local referral Distraction Test Results + Foot/Ankle Special Tests Windlass Test Results - Comments arch raises, no pain Talar tilt Test Results - Anterior drawer Test Results - PT-OP-M Strength Start: 07/16/23 07:24 Freq: Status: Active Protocol: Document 07/16/23 09:46 NM (Rec: 07/16/23 10:33 NM [id number]) Trunk Strength Trunk Manual Muscle Testing Flexion 4 Good Extension 4 Good Rotation Left 4 Good Rotation Right 4 Good Lateral Flexion Left 4 Good Lateral Flexion Right 4 Good Hip Strength Hip Manual Muscle Testing Right Flexion (L2) 4 Good Extension (S1) 4- Good- Abduction 4- Good- Adduction 4 Good External Rotation 4 Good Internal Rotation 4 Good Left Flexion (L2) 4 Good Extension (S1) 4- Good- Abduction 4- Good- Adduction 4 Good External Rotation 4 Good Internal Rotation 4 Good Knee Strength Knee Manual Muscle Testing Right Flexion (S2) 4 Good Extension (L3) 4 Good Left Flexion (S2) 4 Good Extension (L3) 4 Good Ankle/Foot Strength Ankle and Foot Manual Muscle Testing Right Dorsiflexion (L4) 4 Good Plantarflexion (S1) 4 Good Inversion 4 Good Eversion (S1) 4 Good Left Dorsiflexion (L4) 4 Good Plantarflexion (S1) 4 Good Inversion 4 Good Eversion (S1) 4 Good Comments 1 B heel raise; reproduces pain PT-OP-Q Treatments Start: 07/16/23 07:24 Freq: Status: Active Protocol: Document 07/27/23 08:52 AB (Rec: 07/27/23 12:11 AB [id number]) Therapeutic Exercises Supine Exercises bent knee fall out Side bilateral Resistance teal band, then no band Reps/Minutes X8 with band then X 10 with no band Comments reports discomfort SI area with band Standing Exercises sit to stand with band Side bilateral Equipment Used teal band Reps/Minutes X10X3 Comments verbal and visual cues for teal band calf stretch Standing Exercise Name 1. gastrocnemius, 2. soleus on stairs this session Side bilateral Equipment Used stairs Reps/Minutes 3X60 Comments Patient reports this feels really good Manual Therapy Treatment Soft Tissue Mobilization STM left calf muscles and plantar surface of foot Mobilization Type Cross-Friction,Rolling Intensity/Depth Moderate Body Position Prone L foot/ankle Body Location plantar fascia, post tib, peroneals, achilles Mobilization Type Cross-Friction,Rolling Intensity/Depth Moderate Body Position Supine Comments Minimal tenderness along post tib and peroneals. No pain/ discomfort at plantar fascia. Performed distal>proximal Joint Mobilizations Mulligan with movement TC mobs Joint left ankle Direction ap Grade IV Body Position Standing Reps/Duration X10X3 Comments Verbal and visual cues, monitored for pain Taping for plantar fascitis Body Location left foot and calf Type of Tape Kinesiotape Skin Inspection WNL Comments MT head mid calf, 40% stretch plantar surface of foot, no stretch over heel and achilles 20% stretch over calf PT-OP-T Assessment and Plan Start: 07/16/23 07:24 Freq: Status: Active Protocol: Document 07/27/23 08:52 AB (Rec: 07/27/23 12:11 AB [id number]) Physical Therapy Assessment Goals Five Impairment ambulation Impairment pain after ambulation 20 minutes Short Term Goal (STG) Pt will report pain <5/10 after ambulating for 20 minutes in order to demonstrate improved activity tolerance and pain management STG Duration 5 weeks Residential Goal (LTG) Pt will report that she is able to ambulate for at least 30 minutes in order to demonstrate improved activity tolerance and pain management LTG Duration 10 weeks Four Impairment HEP Impairment not performing HEP Short Term Goal (STG) Pt will report compliance with HEP at least 2-3x/wk in order to maximize progressions made with PT STG Duration 5 weeks 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) Pt will report compliance with HEP at least 3x/wk in order to transition into maintenance program upon discharge from PT LTG Duration 10 weeks Three Impairment ankle ROM Impairment L dorsiflexion 12 deg 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) Pt will increase L ankle dorsiflexion to within 5 degrees of R ankle dorsiflexion for improved gait mechanics and to demonstrate improved ankle mobility LTG Duration 10 weeks Two Impairment strength Impairment B hip abd and ext strength 4-/ 5 Short Term Goal (STG) Pt will increase B hip abduction and extension strength to at least 4/5 MMT in order to improve stability during gait and activity STG Duration 5 weeks Residential Goal (LTG) Pt will increase B hip abduction and extension strength to at least 4+/5 MMT in order to improve stability during gait and activity LTG Duration 10 weeks One Impairment LEFS Impairment 56/80 Short Term Goal (STG) Pt will increase LEFS score by at least 5 points in order to demonstrate improved activity tolerance and QOL STG Duration 5 weeks Residential Goal (LTG) Pt will increase LEFS score by at least 9 points (MCID) in order to demonstrate improved activity tolerance and QOL LTG Duration 10 weeks Assessment Summary Assessment Patient reports feeling it in her (gestures to SI area) when performing bent knee fall out with band. Geno reports having no pain ed of session anywhere. Physical Therapy Plan Frequency and Duration Frequency of Treatment 1-2x/wk Duration of treatment (weeks) 10 Plan of Care Start Date 07/16/23 Plan of Care End Date 10/01/23 Next Visit Focus/Plan Next Note Type Treatment Note Next Visit Plan increased band with seated hip abduction and plantar flexion with band, revisit bent knee fall out, progress core strengthening/possibly abdominal bracing with LE extension.
--- NOTE | 2023-08-12 11:36 | PT.OTN ---
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 Pt reports waking up with the pain one day. MD believes plantar fasciitis, but doesn't match. Pt has been wearing boot at night but reports that made symptoms worse. She recently got new shoes and orthotics specific for plantar fasciitis, reports good difference but continues to hurt. Pt used to wear shoes that cause compression. Pain occurs with exercise, plantarflexion. She had a recent gluten exacerbation, which led to systemic inflammation. Reports periodic numbness/tingling along L lateral foot. Pt has 4 kids, always on feet. Previous low back injury after falling down stairs 7 years ago, increased lordosis prn sharp pains and throbbing R>L relieved with flexion Prior Treatments and Tests Radiographs 03/2023: no fracture Current Functional Impairments (Reported) Functional Limitations- Mobility/Gait 20 minutes ambulation, standing Functional Limitations- Recreation/ unable to exercise Hobbies PT-OP-C Subjective Start: 07/16/23 07:24 Freq: Status: Active Protocol: Document 08/12/23 09:43 SW (Rec: 08/12/23 10:31 SW [id number]) OP-PT Subjective Patient Comments Patient Comments Pt reports things are going really good, starting to feel improvement in foot. Pt reports hurting in SI area doing lying down strengthening exercises. PT-OP-D Balance Start: 07/16/23 07:24 Freq: Status: Active Protocol: Document 07/16/23 09:46 NM (Rec: 07/16/23 17:49 NM [id number]) Balance Tests Single Limb Standing Single Limb- Right 30 seconds Single Limb- Left 15 seconds, pain near 5th metatarsal Tandem Tandem Standing 30 seconds, no pain PT-OP-E Functional Tests Start: 07/16/23 07:24 Freq: Status: Active Protocol: Document 07/16/23 09:46 NM (Rec: 07/16/23 17:49 NM [id number]) Functional Tests Squat Test Score 5 Comments L rotation, pronation, B valgus, reproduces foot pain PT-OP-F Manual Assessment Start: 07/16/23 07:24 Freq: Status: Active Protocol: Document 07/16/23 09:46 NM (Rec: 07/16/23 17:49 NM [id number]) Manual Assessments Soft Tissue Assessment Soft Tissue Mobility Assessment Increased hip flexor tightness , B paraspinals Joint Mobility Assessment Joint Mobility Assessment Decreased L great toe extension. Limitations in low back ROM. No increased instability of L ankle PT-OP-G Mobility & Gait Start: 07/16/23 07:24 Freq: Status: Active Protocol: Document 07/16/23 09:46 NM (Rec: 07/16/23 17:49 NM [id number]) OP Gait Assessment Gait Gait Assistance Required: Independent Distance (Feet) 150 Assistive Devices Assistive Device None Gait Deviations General Gait Pattern Antalgic Factors Limiting Gait Function Factors Limiting Gait Function Decreased Activity Tolerance, Pain Comments Gait Comments Demos decreased weight bearing along L lateral foot, tends to pronate PT-OP-H Neuro Start: 07/16/23 07:24 Freq: Status: Active Protocol: Document 07/16/23 09:46 NM (Rec: 07/16/23 17:49 NM [id number]) Sensation Evaluation Comments Summary Comments BLE equally intact to light touch sensation PT-OP-J Posture/Palpation/Skin Start: 07/16/23 07:24 Freq: Status: Active Protocol: Document 07/16/23 09:46 NM (Rec: 07/16/23 17:49 NM [id number]) Posture Evaluation Position Standing Head/C-Spine Posture Forward Head L-Spine Posture Increased Lordosis Pelvis Posture Anteriorly Tilted Knee Posture (L) Genu Valgus,(R) Genu Valgus Patellar Posture (L) Superior,(R) Superior Ankle/Foot Posture (L) Pronated,(R) Pronated,(L) Calcaneal Eversion,(R) Calcaneal Eversion Foot Arch (L) Low Arch,(R) Low Arch Palpation Assessment Location L foot Palpation Details Tenderness to 5th metatarsal. No tenderness of calcaneus, arch, Achilles, malleoli, other metatarsals Skin Assessment Other Assessments Skin Assessment Comments No swelling PT-OP-K Range of Motion Start: 07/16/23 07:24 Freq: Status: Active Protocol: Document 07/16/23 09:46 NM (Rec: 07/16/23 10:33 NM [id number]) Hip Goniometric Range of Motion Hip Right Flexion w/Knee Flexed 120 Internal Rotation 35 External Rotation 30 Comments 170 deg HS length Left Flexion w/Knee Flexed 120 Internal Rotation 35 External Rotation 35 Comments 165 deg hamstring Knee Goniometric Range of Motion Knee Right Flexion Active (degrees) 135 Hyper-Extension Active 5 Left Flexion Active (degrees) 135 Hyper-Extension Active 3 Ankle and Foot Goniometric Range of Motion Ankle and Foot Right Dorsiflexion with Knee Flexed 15 Dorsiflexion with Knee Extended 10 Plantarflexion 40 Inversion 35 Eversion 15 Left Dorsiflexion with Knee Flexed 12 Dorsiflexion with Knee Extended 5 Plantarflexion 40 Inversion 30 Eversion 10 Comments no pain PT-OP-L Special Tests Start: 07/16/23 07:24 Freq: Status: Active Protocol: Document 07/16/23 09:46 NM (Rec: 07/16/23 10:33 NM [id number]) Special Tests Lumbar Spine Special Tests Berry/Quadrant Test Results + Comments B local referral Distraction Test Results + Foot/Ankle Special Tests Windlass Test Results - Comments arch raises, no pain Talar tilt Test Results - Anterior drawer Test Results - PT-OP-M Strength Start: 07/16/23 07:24 Freq: Status: Active Protocol: Document 07/16/23 09:46 NM (Rec: 07/16/23 10:33 NM [id number]) Trunk Strength Trunk Manual Muscle Testing Flexion 4 Good Extension 4 Good Rotation Left 4 Good Rotation Right 4 Good Lateral Flexion Left 4 Good Lateral Flexion Right 4 Good Hip Strength Hip Manual Muscle Testing Right Flexion (L2) 4 Good Extension (S1) 4- Good- Abduction 4- Good- Adduction 4 Good External Rotation 4 Good Internal Rotation 4 Good Left Flexion (L2) 4 Good Extension (S1) 4- Good- Abduction 4- Good- Adduction 4 Good External Rotation 4 Good Internal Rotation 4 Good Knee Strength Knee Manual Muscle Testing Right Flexion (S2) 4 Good Extension (L3) 4 Good Left Flexion (S2) 4 Good Extension (L3) 4 Good Ankle/Foot Strength Ankle and Foot Manual Muscle Testing Right Dorsiflexion (L4) 4 Good Plantarflexion (S1) 4 Good Inversion 4 Good Eversion (S1) 4 Good Left Dorsiflexion (L4) 4 Good Plantarflexion (S1) 4 Good Inversion 4 Good Eversion (S1) 4 Good Comments 1 B heel raise; reproduces pain PT-OP-Q Treatments Start: 07/16/23 07:24 Freq: Status: Active Protocol: Document 08/12/23 09:43 (Rec: 08/12/23 10:31 [id number]) Therapeutic Exercises Sitting Exercises Seated Clams Sitting Exercise Name Seated clams (progressed HEP resistance) Side bilateral Resistance Level 3>Level 4 Reps/Minutes 3 x 15 Toe Raises Sitting Exercise Name Great toe ext, full ray ext Resistance AROM plantar flexion with band Side left Resistance level 2 teal band Reps/Minutes X15 Comments verbal cues to perform in pain free range glute medius Sitting Exercise Name isometric Side bilateral Resistance lvl 3 tb Reps/Minutes 1x60 X15 without hold Comments cued feet flat, pain free but feels good glute ankle plantarflexion Sitting Exercise Name Progressed HEP currently level 3>level 4 Side left Resistance level 4 band Reps/Minutes x15 Comments Pain free, good fatigue ankle dorsiflexion Side left Resistance lvl 2 teal tb Reps/Minutes 2x 10 Standing Exercises Hip Ext Standing Exercise Name Hip ext w/abdominal bracing Comments Too painful in SI joint calf stretch Standing Exercise Name 1. gastrocnemius, 2. soleus on stairs this session 3. Toe stretch dig 1-5 Side bilateral Equipment Used stairs Reps/Minutes 3X60 Comments Patient reports this feels really good Other Exercises lateral stepping Other Exercise Name side stepping Side bilateral Resistance Level 3 TB Reps/Minutes 3 x 10 ft ea Comments cues for bend in knees Manual Therapy Treatment Soft Tissue Mobilization STM left calf muscles and plantar surface of foot Mobilization Type Cross-Friction,Rolling Intensity/Depth Moderate Body Position Prone Comments ankles elevated on small bolster PT-OP-T Assessment and Plan Start: 07/16/23 07:24 Freq: Status: Active Protocol: Document 08/12/23 09:43 SW (Rec: 08/12/23 10:31 SW [id number]) Physical Therapy Assessment Goals Five Impairment ambulation Impairment pain after ambulation 20 minutes Short Term Goal (STG) Pt will report pain <5/10 after ambulating for 20 minutes in order to demonstrate improved activity tolerance and pain management STG Duration 5 weeks Fdc Goal (LTG) Pt will report that she is able to ambulate for at least 30 minutes in order to demonstrate improved activity tolerance and pain management LTG Duration 10 weeks Four Impairment HEP Impairment not performing HEP Short Term Goal (STG) Pt will report compliance with HEP at least 2-3x/wk in order to maximize progressions made with PT STG Duration 5 weeks [employer] Goal (LTG) Pt will report compliance with HEP at least 3x/wk in order to transition into maintenance program upon discharge from PT LTG Duration 10 weeks Three Impairment ankle ROM Impairment L dorsiflexion 12 deg [employer] Goal (LTG) Pt will increase L ankle dorsiflexion to within 5 degrees of R ankle dorsiflexion for improved gait mechanics and to demonstrate improved ankle mobility LTG Duration 10 weeks Two Impairment strength Impairment B hip abd and ext strength 4-/ 5 Short Term Goal (STG) Pt will increase B hip abduction and extension strength to at least 4/5 MMT in order to improve stability during gait and activity STG Duration 5 weeks Fdc Goal (LTG) Pt will increase B hip abduction and extension strength to at least 4+/5 MMT in order to improve stability during gait and activity LTG Duration 10 weeks One Impairment LEFS Impairment 56/80 Short Term Goal (STG) Pt will increase LEFS score by at least 5 points in order to demonstrate improved activity tolerance and QOL STG Duration 5 weeks Fdc Goal (LTG) Pt will increase LEFS score by at least 9 points (MCID) in order to demonstrate improved activity tolerance and QOL LTG Duration 10 weeks Assessment Summary Assessment Pt reports L foot feeling good , minimal STM this session, focused on therapeutic exercises. Pt reports feeling increased pain for the last ~ 8 days in SI joint, Bridge and supine clams causing increased pain during HEP, instructed patient to discontinue for now. Pt feels HEP are getting easier, has increased reps still feels easy, progressed pt this session with increased resistance, tolerated well, pain free appropriate amount of mm fatigue. Trialed standing hip extension with abdominal bracing this session for glute strengthening, too painful in SI joint. Pt reports going to chiropractor later today in hopes it will help getting a manipulation. Plan to assess pt pain level next session and progress hip strengthening as able. Physical Therapy Plan Frequency and Duration Frequency of Treatment 1-2x/wk Duration of treatment (weeks) 10 Plan of Care Start Date 07/16/23 Plan of Care End Date 10/01/23 Therapeutic Interventions Therapeutic Interventions Balance Training,Gait Training ,Home Exercise Program,Joint Mobilizations,Manual Therapy, Neuromuscular Re-education, Orthotic/Prosthetic Management ,Patient/Caregiver Education, Self-Care/Home Management, Sensory Integration,Soft Tissue Mobilization,Taping, Therapeutic Activities, Therapeutic Exercises Modalities Cold Pack/Ice Massage,Electric Stimulation,Hot Packs, Ultrasound,Vasopneumatic Devices Next Visit Focus/Plan Next Note Type Treatment Note Next Visit Plan increased band with seated hip abduction and plantar flexion with band, revisit bent knee fall out, progress core strengthening/possibly abdominal bracing with LE extension.
--- NOTE | 2023-08-18 15:37 | PT.OTN ---
Current Diagnoses Plantar fascial fibromatosis (08/18/23) Pain in left foot (08/18/23) Other lack of coordination (08/18/23) Weakness (08/18/23) Physical Therapy Treatment Note PT-OP-A Visit Information Start: 07/16/23 07:24 Freq: Status: Active Protocol: Document 08/18/23 09:04 NM (Rec: 08/18/23 09:48 NM [id number]) Out-Patient Physical Therapy Visit Information Visit Information Visit Type Progress Note Visit Note 12 visits MAX Visit Start Time 09:06 Visit Stop Time 09:46 Visit Number 6 Evaluation Information Evaluation Date 07/16/23 PT-OP-B Current Condition Start: 07/16/23 07:24 Freq: Status: Active Protocol: Document 07/16/23 09:46 NM (Rec: 07/16/23 10:33 NM [id number]) Current Condition History of Current Condition Onset Date 8 months Current Complaints pain, mobility, strength, balance History of Current Condition Pt reports that she has had pain in her foot for 8 months, L>R, that has worsened overall. Pt reports waking up with the pain one day. MD believes plantar fasciitis, but doesn't match. Pt has been wearing boot at night but reports that made symptoms worse. She recently got new shoes and orthotics specific for plantar fasciitis, reports good difference but continues to hurt. Pt used to wear shoes that cause compression. Pain occurs with exercise, plantarflexion. She had a recent gluten exacerbation, which led to systemic inflammation. Reports periodic numbness/tingling along L lateral foot. Pt has 4 kids, always on feet. Previous low back injury after falling down stairs 7 years ago, increased lordosis prn sharp pains and throbbing R>L relieved with flexion Prior Treatments and Tests Radiographs 03/2023: no fracture Current Functional Impairments (Reported) Functional Limitations- Mobility/Gait 20 minutes ambulation, standing Functional Limitations- Recreation/ unable to exercise Hobbies PT-OP-C Subjective Start: 07/16/23 07:24 Freq: Status: Active Protocol: Document 08/18/23 09:04 NM (Rec: 08/18/23 09:48 NM [id number]) OP-PT Subjective Patient Comments Patient Comments Pt reports that overall pain has improved, pain with walking and waking up in morning, states less pain with steps. Reports walked nearly 40 minutes recently without foot pain. Going to chiro 2x/ wk for SIJ and low back pain. Later during session, that her 5th met has cyst or something on lateral side of L foot; going to MD on 08/29 as of now; has pain with weight bearing when not in shoe beginning several days ago. Patient Reported Progress Improving PT-OP-D Balance Start: 07/16/23 07:24 Freq: Status: Active Protocol: Document 07/16/23 09:46 NM (Rec: 07/16/23 17:49 NM [id number]) Balance Tests Single Limb Standing Single Limb- Right 30 seconds Single Limb- Left 15 seconds, pain near 5th metatarsal Tandem Tandem Standing 30 seconds, no pain PT-OP-E Functional Tests Start: 07/16/23 07:24 Freq: Status: Active Protocol: Document 07/16/23 09:46 NM (Rec: 07/16/23 17:49 NM [id number]) Functional Tests Squat Test Score 5 Comments L rotation, pronation, B valgus, reproduces foot pain PT-OP-F Manual Assessment Start: 07/16/23 07:24 Freq: Status: Active Protocol: Document 07/16/23 09:46 NM (Rec: 07/16/23 17:49 NM [id number]) Manual Assessments Soft Tissue Assessment Soft Tissue Mobility Assessment Increased hip flexor tightness , B paraspinals Joint Mobility Assessment Joint Mobility Assessment Decreased L great toe extension. Limitations in low back ROM. No increased instability of L ankle PT-OP-G Mobility & Gait Start: 07/16/23 07:24 Freq: Status: Active Protocol: Document 07/16/23 09:46 NM (Rec: 07/16/23 17:49 NM [id number]) OP Gait Assessment Gait Gait Assistance Required: Independent Distance (Feet) 150 Assistive Devices Assistive Device None Gait Deviations General Gait Pattern Antalgic Factors Limiting Gait Function Factors Limiting Gait Function Decreased Activity Tolerance, Pain Comments Gait Comments Demos decreased weight bearing along L lateral foot, tends to pronate PT-OP-H Neuro Start: 07/16/23 07:24 Freq: Status: Active Protocol: Document 07/16/23 09:46 NM (Rec: 07/16/23 17:49 NM [id number]) Sensation Evaluation Comments Summary Comments BLE equally intact to light touch sensation PT-OP-J Posture/Palpation/Skin Start: 07/16/23 07:24 Freq: Status: Active Protocol: Document 07/16/23 09:46 NM (Rec: 07/16/23 17:49 NM [id number]) Posture Evaluation Position Standing Head/C-Spine Posture Forward Head L-Spine Posture Increased Lordosis Pelvis Posture Anteriorly Tilted Knee Posture (L) Genu Valgus,(R) Genu Valgus Patellar Posture (L) Superior,(R) Superior Ankle/Foot Posture (L) Pronated,(R) Pronated,(L) Calcaneal Eversion,(R) Calcaneal Eversion Foot Arch (L) Low Arch,(R) Low Arch Palpation Assessment Location L foot Palpation Details Tenderness to 5th metatarsal. No tenderness of calcaneus, arch, Achilles, malleoli, other metatarsals Skin Assessment Other Assessments Skin Assessment Comments No swelling PT-OP-K Range of Motion Start: 07/16/23 07:24 Freq: Status: Active Protocol: Document 08/18/23 09:04 NM (Rec: 08/18/23 12:42 NM [id number]) Ankle and Foot Goniometric Range of Motion Ankle and Foot Left Dorsiflexion with Knee Flexed 12 Dorsiflexion with Knee Extended 5 Plantarflexion 40 Inversion 30 Eversion 10 Comments no pain 08/18/23: 12 deg ankle DF an 40 deg plantarflexion, pain free PT-OP-L Special Tests Start: 07/16/23 07:24 Freq: Status: Active Protocol: Document 07/16/23 09:46 NM (Rec: 07/16/23 10:33 NM [id number]) Special Tests Lumbar Spine Special Tests Berry/Quadrant Test Results + Comments B local referral Distraction Test Results + Foot/Ankle Special Tests Windlass Test Results - Comments arch raises, no pain Talar tilt Test Results - Anterior drawer Test Results - PT-OP-M Strength Start: 07/16/23 07:24 Freq: Status: Active Protocol: Document 07/16/23 09:46 NM (Rec: 07/16/23 10:33 NM [id number]) Trunk Strength Trunk Manual Muscle Testing Flexion 4 Good Extension 4 Good Rotation Left 4 Good Rotation Right 4 Good Lateral Flexion Left 4 Good Lateral Flexion Right 4 Good Hip Strength Hip Manual Muscle Testing Right Flexion (L2) 4 Good Extension (S1) 4- Good- Abduction 4- Good- Adduction 4 Good External Rotation 4 Good Internal Rotation 4 Good Left Flexion (L2) 4 Good Extension (S1) 4- Good- Abduction 4- Good- Adduction 4 Good External Rotation 4 Good Internal Rotation 4 Good Knee Strength Knee Manual Muscle Testing Right Flexion (S2) 4 Good Extension (L3) 4 Good Left Flexion (S2) 4 Good Extension (L3) 4 Good Ankle/Foot Strength Ankle and Foot Manual Muscle Testing Right Dorsiflexion (L4) 4 Good Plantarflexion (S1) 4 Good Inversion 4 Good Eversion (S1) 4 Good Left Dorsiflexion (L4) 4 Good Plantarflexion (S1) 4 Good Inversion 4 Good Eversion (S1) 4 Good Comments 1 B heel raise; reproduces pain PT-OP-Q Treatments Start: 07/16/23 07:24 Freq: Status: Active Protocol: Document 08/18/23 09:04 NM (Rec: 08/18/23 09:48 NM [id number]) Therapeutic Exercises Supine Exercises heel digs Supine Exercise Name HS isometric Side left Equipment Used toes elevated Reps/Minutes 5x5 Comments for SIJ pain, reports slight relief, but mainly L sided pain bridge Supine Exercise Name with hip add Side bilateral Reps/Minutes 1x3 Sitting Exercises short arch raises Side left Reps/Minutes 1x10 with brief pause Comments challenging; tactile and verbal cues for arch lift only w/o toe flex marble pick ups Sitting Exercise Name inversion and eversion Side left Reps/Minutes 2x10 marbles ea Comments pain free but reports fatigue in arch towel scrunches Sitting Exercise Name 1. eversion, 2. inversion Side left Reps/Minutes 1x5 ea Comments challenging; no arch pain Standing Exercises heel raises Standing Exercise Name trialed in PT Side bilateral Equipment Used small ball between ankles Reps/Minutes 1x5 Comments d/c due to pain in medial ankle ankle dorsiflexion Standing Exercise Name leaning against wall Side bilateral Resistance AROM Reps/Minutes 2x10 with pause at top, ~3 sec to lower Comments pain free; cued for slower motion for control, eccentric lowering Manual Therapy Treatment Other Other Manual Treatments Vibration testing of 5th metatarsal: reports increased pain with vibration of tuning fork; performed at end of session. Also performed at several other bony prominences of L foot for comparison. Reports increased symptoms only 1 distal 5th metatarsal Self-Care/Home Management Treatment Education Patient Education Home Exercise Program,Pain Management,Safety Other Education HEP: seated short arch raises, towel inversion/eversion 8 minutes- Educated on modalities (ice) and elevation for pain reduction with foot. Educated on minimizing WB, following up with PCP immediately due to vibration testing, and ambulation only while wearing shoes when upright PT-OP-T Assessment and Plan Start: 07/16/23 07:24 Freq: Status: Active Protocol: Document 08/18/23 09:04 NM (Rec: 08/18/23 09:48 NM [id number]) Physical Therapy Assessment Goals Five Impairment ambulation Impairment pain after ambulation 20 minutes Short Term Goal (STG) Pt will report pain <5/10 after ambulating for 20 minutes in order to demonstrate improved activity tolerance and pain management 08/18/23: walked 40 minutes several days ago, 2/10 pain STG Duration 5 weeks Snf Goal (LTG) Pt will report that she is able to ambulate for at least 30 minutes in order to demonstrate improved activity tolerance and pain management 08/18/23: walked 40 minutes several days ago, 2/10 pain LTG Duration 10 weeks MET Four Impairment HEP Impairment not performing HEP Short Term Goal (STG) Pt will report compliance with HEP at least 2-3x/wk in order to maximize progressions made with PT 08/18/23: average 5x/wk STG Duration 5 weeks MET Registered Dietitian Goal (LTG) Pt will report compliance with HEP at least 3x/wk in order to transition into maintenance program upon discharge from PT LTG Duration 10 weeks Three Impairment ankle ROM Impairment L dorsiflexion 12 deg Registered Dietitian Goal (LTG) Pt will increase L ankle dorsiflexion to within 5 degrees of R ankle dorsiflexion for improved gait mechanics and to demonstrate improved ankle mobility 08/18/23: 12 deg L ankle DF LTG Duration 10 weeks Two Impairment strength Impairment B hip abd and ext strength 4-/ 5 Short Term Goal (STG) Pt will increase B hip abduction and extension strength to at least 4/5 MMT in order to improve stability during gait and activity 08/18/23: 4/5 ext and abd; pain at L SIJ with resisted extension STG Duration 5 weeks MET Snf Goal (LTG) Pt will increase B hip abduction and extension strength to at least 4+/5 MMT in order to improve stability during gait and activity LTG Duration 10 weeks One Impairment LEFS Impairment 56/80 Short Term Goal (STG) Pt will increase LEFS score by at least 5 points in order to demonstrate improved activity tolerance and QOL 08/18/23: 64/80 STG Duration 5 weeks MET Registered Dietitian Goal (LTG) Pt will increase LEFS score by at least 9 points (MCID) in order to demonstrate improved activity tolerance and QOL 08/18/23: 64/80 LTG Duration 10 weeks Progress Towards Goals Progress Towards Goals Progressing Toward Goals Progress Comments Met several STGs, progressing toward LTGs Assessment Summary Assessment Initiated foot intrinsics for strengthening pt's arch in sitting, will progress to standing as pt improved form and has less fatigue. Pt most limited by L arch pain in standing and with ambulation. Challenged by short arch raises and attempts to compensate with toe flexion to assist with arch stabilization. Pt pain free with ankle inversion and eversion, added towel scrunches and marble pick ups to assist with increased L foot intrinsic activation. Due to L SIJ pain that limits activities and hip strengthening, trialed both isometric hamstring and bridges with hip ADD. Still painful B SIJ, but less pain with hamstring isometrics. Trialed standing ankle dorsiflexion and plantarflexion with ball. Pain free with ankle dorsiflexion but has medial ankle pain with weightbearing plantarflexion; discontinued plantarflexion. Pt now has pain along distal 5th metatarsal. Pt informed PT toward end of session, states has pain with weightbearing without shoes and vibration testing when performed. Due to possibility of stress fracture, educated pt on following up immediately with PCP. Pt verbalizes agreement. Physical Therapy Plan Frequency and Duration Frequency of Treatment 1-2x/wk Duration of treatment (weeks) 10 Plan of Care Start Date 07/16/23 Plan of Care End Date 10/01/23 Therapeutic Interventions Therapeutic Interventions Balance Training,Gait Training ,Home Exercise Program,Joint Mobilizations,Manual Therapy, Neuromuscular Re-education, Orthotic/Prosthetic Management ,Patient/Caregiver Education, Self-Care/Home Management, Sensory Integration,Soft Tissue Mobilization,Taping, Therapeutic Activities, Therapeutic Exercises Modalities Cold Pack/Ice Massage,Electric Stimulation,Hot Packs, Ultrasound,Vasopneumatic Devices Next Visit Focus/Plan Next Note Type Treatment Note Next Visit Plan Address SIJ, look at pelvic alignment and possible MET. Continue with hip and ankle strengthening Depending on WB status following appt with PCP, PF with band vs standing PF with ball. Trial step up 4-6 and lateral step up, staggered stance RDL, HS isometric on wall, SL balance, standing DF. Progress to seated and standing core as able but focus on ankle
--- NOTE | 2023-11-03 12:06 | PT.OPDS ---
Current Diagnoses Plantar fascial fibromatosis (08/18/23) Pain in left foot (08/18/23) Other lack of coordination (08/18/23) Weakness (08/18/23) Visit Care Team Role Provider Type Regina Aguilar DO Attending Provider Physician Family Provider Primary Care Provider Referring Provider Specialty: Family Practice Address: [address] [place] [address], [address], [facility] Email: [email or web address] Visit Number Visit Number 6 Discharge Summary PT-OP-B Current Condition Start: 07/16/23 07:24 Freq: Status: Active Protocol: Document 07/16/23 09:46 NM (Rec: 07/16/23 10:33 NM [id number]) Current Condition History of Current Condition Onset Date 8 months Current Complaints pain, mobility, strength, balance History of Current Condition Pt reports that she has had pain in her foot for 8 months, L>R, that has worsened overall. Pt reports waking up with the pain one day. MD believes plantar fasciitis, but doesn't match. Pt has been wearing boot at night but reports that made symptoms worse. She recently got new shoes and orthotics specific for plantar fasciitis, reports good difference but continues to hurt. Pt used to wear shoes that cause compression. Pain occurs with exercise, plantarflexion. She had a recent gluten exacerbation, which led to systemic inflammation. Reports periodic numbness/tingling along L lateral foot. Pt has 4 kids, always on feet. Previous low back injury after falling down stairs 7 years ago, increased lordosis prn sharp pains and throbbing R>L relieved with flexion Prior Treatments and Tests Radiographs 03/2023: no fracture Current Functional Impairments (Reported) Functional Limitations- Mobility/Gait 20 minutes ambulation, standing Functional Limitations- Recreation/ unable to exercise Hobbies PT-OP-C Subjective Start: 07/16/23 07:24 Freq: Status: Active Protocol: Document 08/18/23 09:04 NM (Rec: 08/18/23 09:48 NM [id number]) OP-PT Subjective Patient Comments Patient Comments Pt reports that overall pain has improved, pain with walking and waking up in morning, states less pain with steps. Reports walked nearly 40 minutes recently without foot pain. Going to chiro 2x/ wk for SIJ and low back pain. Later during session, that her 5th met has cyst or something on lateral side of L foot; going to MD on 08/29 as of now; has pain with weight bearing when not in shoe beginning several days ago. Patient Reported Progress Improving PT-OP-D Balance Start: 07/16/23 07:24 Freq: Status: Active Protocol: Document 07/16/23 09:46 NM (Rec: 07/16/23 17:49 NM [id number]) Balance Tests Single Limb Standing Single Limb- Right 30 seconds Single Limb- Left 15 seconds, pain near 5th metatarsal Tandem Tandem Standing 30 seconds, no pain PT-OP-E Functional Tests Start: 07/16/23 07:24 Freq: Status: Active Protocol: Document 07/16/23 09:46 NM (Rec: 07/16/23 17:49 NM [id number]) Functional Tests Squat Test Score 5 Comments L rotation, pronation, B valgus, reproduces foot pain PT-OP-F Manual Assessment Start: 07/16/23 07:24 Freq: Status: Active Protocol: Document 07/16/23 09:46 NM (Rec: 07/16/23 17:49 NM [id number]) Manual Assessments Soft Tissue Assessment Soft Tissue Mobility Assessment Increased hip flexor tightness , B paraspinals Joint Mobility Assessment Joint Mobility Assessment Decreased L great toe extension. Limitations in low back ROM. No increased instability of L ankle PT-OP-G Mobility & Gait Start: 07/16/23 07:24 Freq: Status: Active Protocol: Document 07/16/23 09:46 NM (Rec: 07/16/23 17:49 NM [id number]) OP Gait Assessment Gait Gait Assistance Required: Independent Distance (Feet) 150 Assistive Devices Assistive Device None Gait Deviations General Gait Pattern Antalgic Factors Limiting Gait Function Factors Limiting Gait Function Decreased Activity Tolerance, Pain Comments Gait Comments Demos decreased weight bearing along L lateral foot, tends to pronate PT-OP-H Neuro Start: 07/16/23 07:24 Freq: Status: Active Protocol: Document 07/16/23 09:46 NM (Rec: 07/16/23 17:49 NM [id number]) Sensation Evaluation Comments Summary Comments BLE equally intact to light touch sensation PT-OP-J Posture/Palpation/Skin Start: 07/16/23 07:24 Freq: Status: Active Protocol: Document 07/16/23 09:46 NM (Rec: 07/16/23 17:49 NM [id number]) Posture Evaluation Position Standing Head/C-Spine Posture Forward Head L-Spine Posture Increased Lordosis Pelvis Posture Anteriorly Tilted Knee Posture (L) Genu Valgus,(R) Genu Valgus Patellar Posture (L) Superior,(R) Superior Ankle/Foot Posture (L) Pronated,(R) Pronated,(L) Calcaneal Eversion,(R) Calcaneal Eversion Foot Arch (L) Low Arch,(R) Low Arch Palpation Assessment Location L foot Palpation Details Tenderness to 5th metatarsal. No tenderness of calcaneus, arch, Achilles, malleoli, other metatarsals Skin Assessment Other Assessments Skin Assessment Comments No swelling PT-OP-K Range of Motion Start: 07/16/23 07:24 Freq: Status: Active Protocol: Document 08/18/23 09:04 NM (Rec: 08/18/23 12:42 NM [id number]) Ankle and Foot Goniometric Range of Motion Ankle and Foot Left Dorsiflexion with Knee Flexed 12 Dorsiflexion with Knee Extended 5 Plantarflexion 40 Inversion 30 Eversion 10 Comments no pain 24: 12 deg ankle DF an 40 deg plantarflexion, pain free PT-OP-L Special Tests Start: 07/16/23 07:24 Freq: Status: Active Protocol: Document 07/16/23 09:46 NM (Rec: 07/16/23 10:33 NM [id number]) Special Tests Lumbar Spine Special Tests Berry/Quadrant Test Results + Comments B local referral Distraction Test Results + Foot/Ankle Special Tests Windlass Test Results - Comments arch raises, no pain Talar tilt Test Results - Anterior drawer Test Results - PT-OP-M Strength Start: 07/16/23 07:24 Freq: Status: Active Protocol: Document 07/16/23 09:46 NM (Rec: 07/16/23 10:33 NM [id number]) Trunk Strength Trunk Manual Muscle Testing Flexion 4 Good Extension 4 Good Rotation Left 4 Good Rotation Right 4 Good Lateral Flexion Left 4 Good Lateral Flexion Right 4 Good Hip Strength Hip Manual Muscle Testing Right Flexion (L2) 4 Good Extension (S1) 4- Good- Abduction 4- Good- Adduction 4 Good External Rotation 4 Good Internal Rotation 4 Good Left Flexion (L2) 4 Good Extension (S1) 4- Good- Abduction 4- Good- Adduction 4 Good External Rotation 4 Good Internal Rotation 4 Good Knee Strength Knee Manual Muscle Testing Right Flexion (S2) 4 Good Extension (L3) 4 Good Left Flexion (S2) 4 Good Extension (L3) 4 Good Ankle/Foot Strength Ankle and Foot Manual Muscle Testing Right Dorsiflexion (L4) 4 Good Plantarflexion (S1) 4 Good Inversion 4 Good Eversion (S1) 4 Good Left Dorsiflexion (L4) 4 Good Plantarflexion (S1) 4 Good Inversion 4 Good Eversion (S1) 4 Good Comments 1 B heel raise; reproduces pain PT-OP-T Assessment and Plan Start: 07/16/23 07:24 Freq: Status: Active Protocol: Document 11/03/23 12:00 NM (Rec: 11/03/23 12:06 NM [id number]) Physical Therapy Assessment Goals Five Impairment ambulation Impairment pain after ambulation 20 minutes Short Term Goal (STG) Pt will report pain <5/10 after ambulating for 20 minutes in order to demonstrate improved activity tolerance and pain management 08/18/23: walked 40 minutes several days ago, 2/10 pain STG Duration 5 weeks Fpc Goal (LTG) Pt will report that she is able to ambulate for at least 30 minutes in order to demonstrate improved activity tolerance and pain management 08/18/23: walked 40 minutes several days ago, 2/10 pain LTG Duration 10 weeks MET Four Impairment HEP Impairment not performing HEP Short Term Goal (STG) Pt will report compliance with HEP at least 2-3x/wk in order to maximize progressions made with PT 08/18/23: average 5x/wk STG Duration 5 weeks MET Fpc Goal (LTG) Pt will report compliance with HEP at least 3x/wk in order to transition into maintenance program upon discharge from PT LTG Duration 10 weeks Three Impairment ankle ROM Impairment L dorsiflexion 12 deg Clinical Dietitian Goal (LTG) Pt will increase L ankle dorsiflexion to within 5 degrees of R ankle dorsiflexion for improved gait mechanics and to demonstrate improved ankle mobility 08/18/23: 12 deg L ankle DF LTG Duration 10 weeks Two Impairment strength Impairment B hip abd and ext strength 4-/ 5 Short Term Goal (STG) Pt will increase B hip abduction and extension strength to at least 4/5 MMT in order to improve stability during gait and activity 08/18/23: 4/5 ext and abd; pain at L SIJ with resisted extension STG Duration 5 weeks MET Clinical Dietitian Goal (LTG) Pt will increase B hip abduction and extension strength to at least 4+/5 MMT in order to improve stability during gait and activity LTG Duration 10 weeks One Impairment LEFS Impairment 56/80 Short Term Goal (STG) Pt will increase LEFS score by at least 5 points in order to demonstrate improved activity tolerance and QOL 08/18/23: 64/80 STG Duration 5 weeks MET Fpc Goal (LTG) Pt will increase LEFS score by at least 9 points (MCID) in order to demonstrate improved activity tolerance and QOL 08/18/23: 6480 LTG Duration 10 weeks Assessment Summary Assessment Pt was evaluated for L ankle/ foot pain in June 2023. She attended x5 appointments following evaluation. Pt has not been seen in clinic since last appointment with PT on when PT recommended pt go to walk-in clinic to address new onset foot pain for potential fracture after positive vibration test. Pt did not return to PT following walk-in clinic appointment. Currently, pt is outside of her episode of care dates and canceled last 6 remaining appointments. Physical Therapy Plan Frequency and Duration Frequency of Treatment 1-2x/wk Duration of treatment (weeks) 10 Plan of Care Start Date 07/16/23 Plan of Care End Date 10/01/23 Therapeutic Interventions Therapeutic Interventions Balance Training,Gait Training ,Home Exercise Program,Joint Mobilizations,Manual Therapy, Neuromuscular Re-education, Orthotic/Prosthetic Management ,Patient/Caregiver Education, Self-Care/Home Management, Sensory Integration,Soft Tissue Mobilization,Taping, Therapeutic Activities, Therapeutic Exercises Modalities Cold Pack/Ice Massage,Electric Stimulation,Hot Packs, Ultrasound,Vasopneumatic Devices Discharge Physical Therapy Discharge Reasons No Longer Attending PT Discharge Comments Pt has not been seen in clinic since 08/18/23. She canceled last 6 remaining appointments. Pt will be discharged from PT as she is no longer attending PT and will need new referral in order to return to PT Next Visit Focus/Plan Next Visit Plan Discharge from PT
== END 2023-11-10 08:40 ==
LOC: PHYS 09:00
PROVIDERS: Family Provider Family Medicine; PCP Family Medicine; Referring Provider Family Medicine; Visit Provider Family Medicine
DX: M72.2 Plantar fascial fibromatosis (principal); M79.672 Pain in left foot; R53.1 Weakness; R27.8 Other lack of coordination
CPT/HCPCS: 97110; 97140; 97161; 97535

== ENCOUNTER → 2023-10-26 06:45 | Outpatient (CLI) | payer OTHER, MEDICAID, SELFPAY ==
--- NOTE | 2023-10-26 06:46 | DI.US.S_ITS ---
PROCEDURE: US PELVIC COMPLETE INDICATIONS: Dysmenorrhea TECHNIQUE: Real-time scanning was performed of the pelvic organs, with image documentation. Additional endovaginal scanning was necessary due to incomplete visualization of the adnexal and endometrial structures by transabdominal scanning. COMPARISON: None. FINDINGS: Uterus: Uterus is anteverted and mildly enlarged in size at 10.4 x 5.3 x 7 a 3 cm. The myometrium is homogeneous. The endometrium measures 12.9 mm combined thickness. Ovaries: The right ovary measures 3.8 x 1.9 x 1.8 cm, with a calculated ovarian volume of 6.8 cc. The left ovary measures 3.2 x 2.8 x 1.8 by cm, with a calculated ovarian volume of 8.3 cc. The ovaries have a normal sonographic appearance. Less than 12 follicles can be seen in each ovary. No adnexal masses are seen. Other: No pathologic free abdominal or pelvic fluid. IMPRESSION: Mildly prominent uterus the without visualized abnormality. The We strive to produce accurate, complete, and clear reports of imaging services. To assist us in improving patient care, this report was composed using standard report templates and voice recognition software. Therefore, it may contain abnormal punctuation, insertions and/or omissions. Occasional wrong-word or sound-alike substitutions may occur. Though we review the report and make efforts to correct it, we do recommend that the report be read carefully in proper context to recognize any text inaccuracies. Dictated by: Mary Eaton M.D. on 10/26/2023 at 7:26 Approved by: Mary Eaton M.D. on 10/26/2023 at 7:26
== END ==
LOC: US 06:45
PROVIDERS: Family Provider Family Medicine; PCP Family Medicine; Referring Provider Family Medicine; Visit Provider Family Medicine
DX: N85.2 Hypertrophy of uterus (principal); N92.0 Excessive and frequent menstruation with regular cycle; N94.6 Dysmenorrhea, unspecified
CPT/HCPCS: 76830; 76856

== ENCOUNTER → 2024-03-02 09:45 | Outpatient (CLI) | payer OTHER, MEDICAID, SELFPAY ==
[2024-03-02 10:38] LABS: Add Manual Diff / Slide Review NO; Basophils Absolute Auto 0 /uL (0-100); Basophils Percent Auto 0.4 % (0-2); Eosinophils Absolute Auto 100 /uL (0-450); Hematocrit 37.8 % (36-46); Hemoglobin 12.8 g/dL (12.0-16.0); Lymphocytes Absolute Auto 2100 /uL (1100-4500); Lymphocytes Percent Auto 36.4 % (25-40); Mean Corpuscular HGB Conc 33.9 % (30-36); Mean Corpuscular Hemoglobin 32.6 PG (26-34); Monocytes Absolute Auto 600 /uL (0-900); Monocytes Percent Auto 10.3 % (3-14); Neutrophils Absolute Auto 3100 /uL (1500-7000); Neutrophils Percent Auto 51.9 % (50-75); Platelet Count 272 X10^3/uL (150-400); Red Blood Cell Count 3.94 X10^6/uL (4.0-5.2); Red Cell Distribution Width 13.4 % (11.6-14.8); White Blood Cell Count 5.9 X10^3/uL (4.5-11.0)
[2024-03-02 11:05] LABS: Alanine Aminotransferase 12 IU/L (<35); Albumin 4.2 g/dL (3.5-5.0); Albumin Globulin Ratio 1.5 (1.0-2.8); Alkaline Phosphatase 42 U/L (38-126); Aspartate Aminotransferase 22 IU/L (14-36); Bilirubin Total 0.5 mg/dL (0.2-1.3); Blood Urea Nitrogen 12 mg/dL (7-17); Calcium 9.5 mg/dL (8.4-10.2); Carbon Dioxide 25 mmol/L (22-32); Chloride 103 mmol/L (98-107); Estimated Glomerular Filt Rate > 60 mL/min (>60); Globulin 2.8 g/dL (1.7-4.1); Glucose 88 mg/dL (70-100); HEMOLYSIS < 15 (0-50); Potassium 4.3 mmol/L (3.4-5.1); Sodium 135 mmol/L (137-145)
[2024-03-02 11:39] LABS: Ferritin 13 ng/mL (6-137)
[2024-03-02 11:55] LABS: TSH w/ Reflex to FT4 0.64 uIU/mL (0.47-4.68)
== END ==
PROVIDERS: Family Provider Family Medicine; PCP Family Medicine; Referring Provider Family Medicine; Visit Provider Family Medicine
DX: N94.6 Dysmenorrhea, unspecified (principal); N92.0 Excessive and frequent menstruation with regular cycle; F43.10 Post-traumatic stress disorder, unspecified
CPT/HCPCS: 36415; 80053; 82728; 84443; 85025

== ENCOUNTER 2024-03-03 09:20 | Day surgery (SDC) | payer OTHER, MEDICAID, SELFPAY ==
[2024-02-29 10:30] VITALS: BMI 28.5
--- NOTE | 2024-03-03 | PATH_ITS ---
[facility] Accession Number: [id number] No. of containers..01 Tissue . 01 Material submitted: . endometrium - ENDOMETRIAL CURETTAGE . 01 Diagnosis: ENDOMETRIAL CURETTAGE: Portions of secretory endometrium; negative for endometrioid intraepithelial neoplasia or malignancy. Some endometrial fragments demonstrate prominent vessels, suggestive of polyp, if clinical and imaging studies are concordant. MRV 03/08/2024 0915 Local . 01 Electronically signed: . Deepa Li MD, Pathologist NPI- [id number] . 01 Gross description: . Received in formalin labeled with two patient identifiers and designated EMC, and consists of a 2.2 x 1.5 x 0.4 cm aggregate of white rubbery soft morcellated tissue which is entirely submitted in cassette A1. ([id number]) /APOLLO 03/04/2024 2330 Local . 01 Pathologist provided ICD-10: N92.0, N94.6 . 01 CPT . 859447 Specimen Comment: A courtesy copy of this report has been sent to [phone] Performed at: [address] [facility] [address], [place], [place] [id number] MD Grayson Spring MD Phone: [phone]
[2024-03-03] MEDS: SCOPOLAMINE 1 PATCH TOP (09:56)
[2024-03-03] MEDS: LACTATED RINGERS 1,000 ML 42 ML IV (09:58)
[2024-03-03] MEDS: ACETAMINOPHEN 325 MG TABLET 975 MG PO (09:58)
[2024-03-03 10:00] VITALS: BP 136/72; PULSE 100; RESP 16; TEMP 37.4; O2SAT 98; BMI 27.2
--- NOTE | 2024-03-03 10:51 | SUR.OPER ---
Lithotomy on padded OR bed, head on pillow, arms secured on padded arm boards at <90 degrees abduction. Legs secured in padded yellow fins stirrups.
--- NOTE | 2024-03-03 10:54 | P.HPOB_ITS ---
History of Present Illness History of Present Illness Reason for admission: vaginal bleeding (Heavy with menstrual cycles, pain with menstrual cycles) Narrative: Geno Schuler is a 43 year old female 5 para 4 who presents for a D&C hysteroscopy and NovaSure endometrial ablation due to menorrhagia and dysmenorrhea. [facility] Medical History (Updated 08/31/23 @ 09:32 by Regina Aguilar DO) Plantar warts Substance abuse PTSD (post-traumatic stress disorder) (~2015) Depression Bulimia Anxiety Anorexia nervosa Painful menstrual periods (~2019) Ovarian cyst (~2009) HSV-1 infection (~2000) Heavy menstrual period (~2019) Surgical History History of Family History Father Mental health problem Asthma Hepatitis C History of heart failure Brother Mental health problem Grandfather Diabetes mellitus Hypertension Hyperlipidemia Grandmother History of heart disease Hypertension Grandfather History of heart disease Grandmother History of heart disease Social History household members: spouse Smoking Status: Never smoker Meds Home Medications and Allergies Home Medications Medication Instructions Recorded Confirmed Type progesterone micronized 100 mg 100 mg PO QAM 12/09/23 03/03/24 History capsule sertraline 25 mg tablet (Zoloft) 25 mg PO DAILY 12/09/23 03/03/24 History ondansetron 4 mg disintegrating 4 mg PO Q6H PRN nausea and 12/15/23 03/03/24 Rx tablet vomiting #20 tabs Allergies Allergy/AdvReac Type Severity Reaction Status Date / Time No Known Drug Allergies Allergy Verified 03/03/24 09:55 Exam Vital Signs (past 8 hours): - 03/03/24 10:00 Temperature 99.4 F Pulse Rate 100 H Respiratory Rate 16 Blood Pressure 136/72 Pulse Oximetry 98 Oxygen Delivery Method Room Air Oxygen Delivery Method Room Air Narrative Exam Narrative: HEENT: No thyromegaly, no anterior cervical or supraclavicular lymphadenopathy. Lungs:Clear to auscultation bilaterally, no wheezes. Cardiovascular: Regular rate and rhythm, no murmurs, rubs, or gallops. Abdomen: No scars. No hepatosplenomegaly. No masses palpable. External genitalia: Normal Vagina: Normal Cervix: Normal Bimanual exam: [7 Week size anteverted uterus. Mobile.] Assessment & Plan Assessment & Plan narrative: Assessment: 43-year-old 5 para 4 with menorrhagia and dysmenorrhea Negative endometrial biopsy Plan: D&C hysteroscopy with NovaSure endometrial ablation The risks, benefits, and alternatives to the procedure were explained to the patient. The risks including bleeding, infection, and uterine perforation. She understands these risks and agrees to proceed. A full par Q was held and co nsent form was signed. Time-Based Coding :: [TOTAL MINUTES] spent with patient and on the chart (including review of chart, obtaining history, exam, reviewing outside data, placing orders, documenting exam and treatment plan, and counseling patient) on [DATE].
--- NOTE | 2024-03-03 10:56 | PM.PREOP ---
Pre-operative Note Interval Note History & Physical reviewed/Exam performed by Physician: Yes Changes to H&P: No H&P completed within 30 days and has changed as indicated here:: 03/03/24
--- NOTE | 2024-03-03 11:37 | PM.GYNOP.1 ---
Operative Date/Time/Diagnoses Date of procedure: 03/03/24 Time of procedure: 11:37 Pre-op diagnosis: Menorrhagia Dysmenorrhea Post-op diagnosis: same Procedure & Clinicians Procedure: Procedures Operation Date: 03/03/24 11:00 <No data on this case meets the specified criteria> Indications: 43-year-old 5 para 4 with menorrhagia and dysmenorrhea Surgeon: Jaqueline Higgins Anesthesia Type: General (LMA) Operative Notes Findings: 7 week size anteverted uterus Both fallopian tube ostia observed Thickened endometrium throughout No polyps or fibroids visualized Closure Type: not applicable Specimen(s): endometrial curettings Estimated blood loss (mL): 5 Blood products transfused: none Procedure in detail: After informed consent was obtained, the patient was taken to the operating room where she was placed in the dorsal supine position. After adequate LMA general anesthesia was achieved, she was placed in the dorsal lithotomy position, and prepped and draped in the usual sterile fashion. A time-out was performed. A bivalve speculum was placed into the vagina and the anterior lip of the cervix was grasped with a single-tooth tenaculum. The cervical os was sequentially dilated to the # 8 Hegar dilator. The MyoSure hysteroscope passed easily into the endometrial cavity. Both fallopian tube ostia were observed. There were no polyps or fibroids visualized. There was a thickened endometrium throughout. Using the MyoSure Lite, endometrial curettings were obtained from multiple sites throughout the uterus. The MyoSure was removed. The uterus was measured from the internal os of the fundus and measured 5.5 cm. This was set on the NovaSure catheter and the generator. The catheter passed easily into the endometrial cavity and was opened. After it was seated, the width measured 4.7 cm. The cervix was capped, the cavity assessment was performed and passed. The measurements indicated a power of 142 w. The cycle was initiated and lasted 1 minute and 22 seconds. At the completion of the cycle the NovaSure catheter was closed, the cervix was uncapped, the catheter was removed from the uterus. The single-tooth tenaculum was removed from the anterior lip of the cervix. The bivalve speculum was removed from the vagina. Length of the uterus 5.5 cm Width of the uterus 4.7 cm Power 142 w Time 1 minutes and 22 seconds MyoSure Total deficit 190 cc Total fluid volume 457 cc Final pressure 80 mmHg Cut time 1 minutes and 1 second Complications: none Post-operative Condition: stable Disposition: PACU Plan for aftercare: Home after recovery
[2024-03-03 11:43] VITALS: BP 103/65; PULSE 73; RESP 12; TEMP 36.1; O2SAT 98
[2024-03-03 11:48] VITALS: BP 110/65; PULSE 78; RESP 11; O2SAT 98
[2024-03-03 11:53] VITALS: BP 107/67; PULSE 77; RESP 14; O2SAT 99
[2024-03-03 11:56] VITALS: BP 108/71; PULSE 72; RESP 14; O2SAT 99
[2024-03-03 12:23] VITALS: BP 136/72; PULSE 98; RESP 16; TEMP 37.4; O2SAT 98
== END 2024-03-03 12:25 | disposition home or self-care (01) ==
PROVIDERS: Family Provider Family Medicine; PCP Family Medicine; Referring Provider Obstetrics & Gynecology; Visit Provider Obstetrics & Gynecology
PROC: 0U5B8ZZ Destruction of Endometrium, Via Natural or Artificial Opening Endoscopic (ICD-10-PCS; CPT 58563; principal; 2024-03-03 11:00)
DX: N92.0 Excessive and frequent menstruation with regular cycle (principal); N94.6 Dysmenorrhea, unspecified
CPT/HCPCS: 58563; 81025; J1100; J1885; J2250; J2405; J2704; J3010

== ENCOUNTER → 2024-03-16 07:56 | Outpatient (CLI) | payer OTHER, MEDICAID, SELFPAY ==
--- NOTE | 2024-03-16 08:20 | DI.MG.S_ITS ---
Patient Name: DONTE ROCHA date: 1980 Sex: F Attending Physician: Jeff Indications: Date: 03/17/2024 17:07 At the request of: ANABEL OH Procedure: MM screening mammo BI BILATERAL DIGITAL SCREENING MAMMOGRAM 3D/2D WITH CAD: 03/16/2024 CLINICAL: Routine screening. Comparison is made to exams dated: 03/02/2023 mammogram - [facility], 10/13/2021 mammogram, and 08/13/2020 mammogram - outside location. There are scattered areas of fibroglandular density (category b / 25%-50% glandular tissue). Current study was also evaluated with a Computer Aided Detection (CAD) system. There is a focal asymmetry in the left breast central to the nipple anterior depth. No other significant masses, calcifications, or other findings are seen in either breast. IMPRESSION: INCOMPLETE: NEED ADDITIONAL IMAGING EVALUATION The focal asymmetry in the left breast is indeterminate. A diagnostic mammogram and ultrasound is recommended. Based on the Tyrer Cuzick model (a risk assessment model) the patient's lifetime risk is 6.7% and her 10 year risk is 1.1%. According to the ACR, ACS, and NCCN guidelines, an annual breast MRI exam along with mammogram is recommended if the patient's lifetime risk is 20% or greater. This exam was interpreted at Station ID: [id number]. Continued Report - Page 2 of 2 Patient Name: DONTE ROCHA date: 1980 Sex: F Attending Physician: Jeff Indications: Date: 03/17/2024 17:07 At the request of: ANABEL OH Procedure: MM screening mammo BI NOTE: For mammograms, a report in lay terms will be sent to the patient. Approximately 15% of breast malignancies will not be visualized mammographically. In the management of a palpable breast mass, a negative mammogram must not discourage biopsy of a clinically suspicious lesion. Electronically Signed By: Dacia White M.D., Ph.D. eb/:03/17/2024 17:07:40 letter sent: Additional Imaging Needed ACR BI-RADS Category 0: Incomplete: Need Additional Imaging Evaluation
== END ==
PROVIDERS: Family Provider Family Medicine; PCP Family Medicine; Referring Provider Family Medicine; Visit Provider Family Medicine
DX: Z12.31 Encounter for screening mammogram for malignant neoplasm of breast (principal)
CPT/HCPCS: 77063; 77067

== ENCOUNTER → 2024-04-20 13:19 | Outpatient (CLI) | payer OTHER, SELFPAY ==
--- NOTE | 2024-04-20 13:20 | DI.MG.S_ITS ---
UNILATERAL LEFT DIGITAL DIAGNOSTIC MAMMOGRAM 3D/2D WITH ADDITIONAL VIEWS: 04/20/2024 CLINICAL: Additional evaluation requested from prior study. Comparison is made to exams dated: 03/02/2023 mammogram, 03/16/2024 mammogram - [facility], and 10/13/2021 mammogram - outside location. There are scattered areas of fibroglandular density (category b / 25%-50% glandular tissue). There is a possible oval equal density asymmetry in the left breast at 3 o'clock anterior depth. This does not persist with spot compression. No other significant masses or calcifications are seen in the breast. IMPRESSION: INCOMPLETE: NEED ADDITIONAL IMAGING EVALUATION The possible asymmetry in the left breast resembles a cyst, dilated superimposed ducts, or clustered cysts but remains indeterminate. An ultrasound is recommended. This was performed immediately following this exam. Based on the Tyrer Cuzick model (a risk assessment model) the patient's lifetime risk is 6.7% and her 10 year risk is 1.1%. According to the ACR, ACS, and NCCN guidelines, an annual breast MRI exam along with mammogram is recommended if the patient's lifetime risk is 20% or greater. This exam was interpreted at Station ID: [id number]. NOTE: For mammograms, a report in lay terms will be sent to the patient. Approximately 15% of breast malignancies will not be visualized mammographically. In the management of a palpable breast mass, a negative mammogram must not discourage biopsy of a clinically suspicious lesion. Electronically Signed By: Eboni squires/:04/20/2024 13:54:38 letter sent: Additional Imaging Needed ACR BI-RADS Category 0: Incomplete: Need Additional Imaging Evaluation
--- NOTE | 2024-04-20 13:20 | DI.US.S_ITS ---
LIMITED ULTRASOUND OF LEFT BREAST AND AXILLA: 04/20/2024 CLINICAL: Patient returns today to evaluate a focal asymmetry in the left breast. Comparison is made to exams dated: 04/20/2024 mammogram, 03/16/2024 mammogram, 03/02/2023 mammogram - [facility], 10/13/2021 mammogram, and 08/13/2020 mammogram - outside location. Color flow and real-time ultrasound of the left breast 3 o'clock, and axilla regions were performed. Mccollum scale images of the real-time examination were reviewed. No significant abnormalities were seen sonographically in the left breast. Multiple mildly prominent ducts are present in the 3:00 position adjacent to the nipple. No intraductal echoes or abnormalities. IMPRESSION: BENIGN There is no suspicious sonographic correlate to the patient's resolved mammogram finding, and no evidence of malignancy. Mammographic appearance can be explained by overlapping ducts. Return to annual mammogram screening schedule is recommended. Findings and recommendations were conveyed to the patient at time of exam. This exam was interpreted at Station ID: [id number]. Electronically Signed By: Eboni squires/:04/20/2024 14:24:31 letter sent: Normal Exam ACR BI-RADS Category 2: Benign
== END ==
PROVIDERS: Family Provider Family Medicine; PCP Family Medicine; Referring Provider Family Medicine; Visit Provider Family Medicine
DX: R92.8 Other abnormal and inconclusive findings on diagnostic imaging of breast (principal)
CPT/HCPCS: 76642; 77065; G0279

== ENCOUNTER → 2024-05-22 10:04 | Outpatient (CLI) | payer OTHER, SELFPAY | PROVIDERS: Family Provider Family Medicine; PCP Family Medicine; Visit Provider Nurse Practitioner Family | DX: R07.0 Pain in throat (principal) | CPT/HCPCS: 87070; 87880 ==